=== PATIENT | female | born 1980 | race Caucasian/White ===

== ENCOUNTER 2017-03-05 10:40 | Emergency (ER) | payer MEDICAID, OTHER ==
--- NOTE | 2017-03-05 11:29 | EDM.PDOC ---
ED HPI GENERAL MEDICAL PROBLEM - General Chief Complaint: Upper Extremity Injury/Pain Stated Complaint: Left arm swelling Time Seen by Provider: 03/05/17 11:15 Source of Information: Reports: Patient, RN Notes Reviewed History Limitations: Reports: No Limitations - History of Present Illness INITIAL COMMENTS - FREE TEXT/NARRATIVE: 36 year old female presents to the ED today with 1 week history of progressively worsening left arm bruising, swelling and discomfort. She reports falling 1 week ago and hitting her elbow. She reports "twinges" of pain for a few days after the injury. She otherwise denies pain today. She has significant and worsening bruising and swelling to the left arm. The swelling involves her mid-humerus region to her hand. Denies numbness, tingling, fever, chills, or night sweats. She denies shoulder pain, forearm pain, wrist or hand pain. Left Elbow Pain Score (Numeric/FACES): 1 - Related Data Allergies Allergy/AdvReac Type Severity Reaction Status Date / Time Penicillins Allergy Cannot Verified 03/05/17 10:51 Remember Home Meds: Home Meds oxyCODONE HCl/Acetaminophen [Oxycodone-Acetaminophen 5-325] 1 - 2 each PO Q4H PRN #20 tablet 03/05/17 [Rx] Past Medical History - Past Health History Medical/Surgical History: Denies Medical/Surgical History Social & Family History - Tobacco Use Smoking Status *Q: Never Smoker - Caffeine Use Caffeine Use: Reports: None - Recreational Drug Use Recreational Drug Use: No Review of Systems - Review of Systems Review Of Systems: See Below Constitutional: Reports: No Symptoms. Denies: Chills, Diaphoresis, Fever, Weakness Respiratory: Reports: No Symptoms. Denies: Shortness of Breath Cardiovascular: Reports: No Symptoms. Denies: Chest Pain Musculoskeletal: Reports: Arm Pain, Joint Swelling. Denies: Shoulder Pain, Hand Pain, Foot Pain Skin: Reports: Bruising, Change in Color Neurological: Reports: No Symptoms. Denies: Numbness, Tingling, Weakness ED EXAM, GENERAL - Physical Exam Exam: See Below Exam Limited By: No Limitations General Appearance: Alert, WD/WN, No Apparent Distress Respiratory/Chest: No Respiratory Distress, Lungs Clear, Normal Breath Sounds Cardiovascular: Regular Rate, Rhythm Extremities: Other (Diffuse swelling from left mid-humerus region down to the hand. She has limited ROM of the left elbow due to swelling. She has a large area of bruising to her tricep region, elbow and proximal forearm. Neurovascular status is intact. No numbness or tingling. No crepitus or obvious deformity. No increased warmth. No open skin wounds. ) Neurological: Alert, Oriented, Normal Cognition, No Motor/Sensory Deficits Skin Exam: Warm, Dry, Intact, Ecchymosis (left elbow) Course - Vital Signs Last Recorded V/S: Last Vital Signs Temp 97.2 F 03/05/17 10:46 Pulse 94 03/05/17 10:46 Resp 18 03/05/17 10:46 BP 119/84 03/05/17 10:46 Pulse Ox 100 03/05/17 10:46 - Orders/Labs/Meds Orders: Active Orders 24 hr Category Date Time Status Elbow Min 3V Lt [CR] Stat Exams 03/05/17 11:20 Taken - Re-Assessments/Exams Free Text/Narrative Re-Assessment/Exam: Left elbow x-rays reveal comminuted, displaced, intra-articular fracture of the left distal humerus. I initially spoke to Dr. Pulido, Orthopedic Surgeon lead generation marketing manager. He recommended transferring to higher level of care. I then spoke to our other Tube Trailer Filler Dr. Felton. He was in surgery but did review the x-rays. Dr. Felton will see her in f/u in the clinic tomorrow morning. I spoke to his office and set up an appointment for tomorrow morning. The patient states that she does not want surgery. 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 She is agreeable to see Dr. Felton in follow-up for further discussion of of surgery. Patient was placed in a long-arm, posterior, ulnar gutter splint with 90 degree flexion at the elbow. Neurovascular status intact prior to and after splinting. She was then placed in a sling. Educated on supportive care. Instructed to take Ibuprofen 600mg TID to help with pain and swelling. Percocet provided for more severe pain. Educated not to drive or drink alcohol while taking Percocet. Discharge instructions as documented. Departure - Departure Time of Disposition: 12:18 Disposition: Home, Self-Care 01 Condition: Good Clinical Impression: Fracture of humerus Qualifiers: Encounter type: initial encounter Humerus Location: distal Fracture type: closed Fracture morphology: other fracture Fracture alignment: displaced Laterality: left Qualified Code(s): S42.492A - Other displaced fracture of lower end of left humerus, initial encounter for closed fracture - Discharge Information Prescriptions: oxyCODONE HCl/Acetaminophen [Oxycodone-Acetaminophen 5-325] 1 - 2 each PO Q4H PRN #20 tablet PRN Reason: Pain Referrals: PCP,None [Primary Care Provider] - Forms: ED Department Discharge Additional Instructions: Elbow Fracture Rest, ice and elevate Keep splint clean and dry, wear at all times. May loosen [place] wrap if needed. Wear sling when up and moving, may remove and elevate arm on pillows Ibuprofen 600mg 3 times a day with food. Tylenol 650mg every 6 hours as needed for pain not relieved by Ibuprofen Percocet 1-2 tabs every 4-6 hours as needed for pain not relieved by Tyelnol or Ibuprofen. Do not exceed 3000mg of Tylenol per day See Dr. Felton in the office tomorrow at 8:20am. Dr. Cui office number is [phone] if you need to reschedule. - My Orders Last 24 Hours: My Active Orders 03/05/17 11:20 Elbow Min 3V Lt [CR] Stat - Assessment/Plan Last 24 Hours: My Active Orders 03/05/17 11:20 Elbow Min 3V Lt [CR] Stat
--- NOTE | 2017-03-05 13:45 | CR ---
Left elbow: Four views of the left elbow were obtained. Comminuted fracture is identified within the distal humerus. Fracture extends vertically to involve the intercondylar region with comminution being seen medially. Transverse fracture is also seen involving the epicondylar region. Radius and ulna appear to be intact. Diffuse soft tissue swelling is identified. Impression: 1. Comminuted distal humeral fracture with articular extension into the elbow. 2. Soft tissue swelling. Diagnostic code #3
== END 2017-03-05 12:30 | disposition home or self-care (01) ==
LOC: JD.ED 10:40
DX: S42.492A Other displaced fracture of lower end of left humerus, initial encounter for closed fracture (principal); S50.02XA Contusion of left elbow, initial encounter; Z88.0 Allergy status to penicillin; W19.XXXA Unspecified fall, initial encounter
CPT/HCPCS: 29105; 73080-26-LT; 73080-LT; 99283-25

== ENCOUNTER 2017-03-11 06:29 | Inpatient (IN) | payer MEDICAID ==
[~2017-03-11 06:29] MED LIST: Lactated Ringers 1,000 ML IV SCH; Lidocaine 1%/Sod Bicarbonate in NS 8.4% 1 ML Syringe IV PRN; Sodium Chloride 0.9% 10 ML Syringe FLUSH PRN
[2017-03-11] MEDS ORDERED: Sodium Chloride 0.9% 10 ML Syringe FLUSH PRN (07:00)
[2017-03-11] MEDS ORDERED: Lidocaine 1%/Sod Bicarbonate in NS 8.4% 1 ML Syringe PRN (07:00)
[2017-03-11] MEDS ORDERED: Propofol 200 MG/20 ML SDV ONE (07:37)
[2017-03-11] MEDS ORDERED: Midazolam 1 MG/ML 2 ML SDV ONE (07:37)
[2017-03-11] MEDS: Lactated Ringers 1,000 ML IV SCH ×3 (07:38→21:33)
[2017-03-11] MEDS ORDERED: fentaNYL 250 MCG/5 ML SDV ONE ×2 (07:38→10:31)
[2017-03-11] MEDS ORDERED: Dexamethasone 4 MG/ML SDV ONE (07:39)
[2017-03-11] MEDS ORDERED: Rocuronium 50 MG/5 ML Vial ONE (07:39)
[2017-03-11] MEDS ORDERED: Lidocaine 1% 4 ML ONE (07:39)
[2017-03-11] MEDS ORDERED: Ondansetron 4 MG/2 ML SDV ONE (07:39)
[2017-03-11] MEDS ORDERED: ceFAZolin 1 GM Vial ONE ×2 (07:40→14:11)
[2017-03-11] MEDS ORDERED: Bupivacaine 0.25% 30 ML SDV ONE (07:47)
--- NOTE | 2017-03-11 07:53 | PCM.PREANE ---
Preanesthetic Assessment - Procedure Proposed Procedure: ORID left intra-articular condylar distal humerous fracture - Anesthesia/Transfusion/Family Hx Anesthesia History: No Prior Anesthesia Family History of Anesthesia Reaction: No Transfusion History: No Prior Transfusion(s) Intubation History: Unknown Additional History: ETOH abuse Pt also stated she doesnt like doctors and does not go to one routinely when asked about her medical problems. - Review of Systems General: No Symptoms Pulmonary: No Symptoms Cardiovascular: No Symptoms Gastrointestinal: No Symptoms Neurological: No Symptoms Other: Reports: Easy Bruising - Physical Assessment NPO Status Date: 03/10/17 NPO Status Time: 23:00 O2 Sat by Pulse Oximetry: 95 Respiratory Rate: 16 Blood Pressure: 142/93 Temperature: 37.7 C Height: 1.57 m Weight: 61 kg ASA Class: 2 Mental Status: Alert & Oriented x3 Airway Class: Mallampati = 3 Dentition: Reports: Normal Dentition Thyro-Mental Finger Breadths: 3 Mouth Opening Finger Breadths: 2 ROM/Head Extension: Full Lungs: Clear to Auscultation, Normal Respiratory Effort Cardiovascular: Regular Rate, Regular Rhythm - Lab Values: Laboratory Last Values WBC 5.15 K/mm3 (3.98-10.04) 03/11/17 07:35 RBC 3.82 M/mm3 (3.98-5.22) L 03/11/17 07:35 Hgb 13.3 gm/L (11.2-15.7) 03/11/17 07:35 Hct 39.3 % (34.1-44.9) 03/11/17 07:35 MCV 102.9 fl (79.4-94.8) H 03/11/17 07:35 MCH 34.8 pg (25.6-32.2) H 03/11/17 07:35 MCHC 33.8 g/dl (32.2-35.5) 03/11/17 07:35 RDW Std Deviation 45.8 fL (36.4-46.3) 03/11/17 07:35 Plt Count 233 K/mm3 (182-369) 03/11/17 07:35 MPV 8.6 fl (9.4-12.3) L 03/11/17 07:35 Neut % (Auto) 74.9 % (34.0-71.1) H 03/11/17 07:35 Lymph % (Auto) 10.9 % (19.3-51.7) L 03/11/17 07:35 [place] % (Auto) 13.0 % (4.7-12.5) H 03/11/17 07:35 Eos % (Auto) 0.6 (0.7-5.8) L 03/11/17 07:35 Baso % (Auto) 0.4 % (0.1-1.2) 03/11/17 07:35 Neut # (Auto) 3.86 K/mm3 (1.56-6.13) 03/11/17 07:35 Lymph # (Auto) 0.56 K/mm3 (1.18-3.74) L 03/11/17 07:35 [place] # (Auto) 0.67 K/mm3 (0.24-0.36) H 03/11/17 07:35 Eos # (Auto) 0.03 K/mm3 (0.04-0.36) L 03/11/17 07:35 Baso # (Auto) 0.02 K/mm3 (0.01-0.08) 03/11/17 07:35 Urine HCG, Qual Negative (NEGATIVE) 03/11/17 07:14 Pending blood etoh and chemistry - Allergies Allergies/Adverse Reactions: Allergies Allergy/AdvReac Type Severity Reaction Status Date / Time Penicillins Allergy Cannot Verified 03/10/17 14:07 Remember - Blood Blood Available: No Product(s) Available: None - Anesthesia Plan Pre-Op Medication Ordered: None - Acknowledgements Anesthesia Type Planned: General Anesthesia Pt an Appropriate Candidate for the Planned Anesthesia: Yes Alternatives and Risks of Anesthesia Discussed w Pt/Guardian: Yes Pt/Guardian Understands and Agrees with Anesthesia Plan: Yes PreAnesthesia Questionnaire - Past Health History Medical/Surgical History: Denies Medical/Surgical History HEENT History: Reports: Impaired Vision, Other (See Below) Other HEENT History: wears glasses - SUBSTANCE USE Smoking Status *Q: Never Smoker Tobacco Use Within Last Twelve Months: Snuff/Dip Days Per Week of Alcohol Use: 7 Number of Drinks Per Day: 2 Total Drinks Per Week: 14 Date of Last Drink: 03/09/17 Time of Last Drink: 18:00 Recreational Drug Use History: No - HOME MEDS Home Medications: Home Meds oxyCODONE HCl/Acetaminophen [Oxycodone-Acetaminophen 5-325] 1 - 2 each PO Q4H PRN #20 tablet 03/05/17 [Rx] - CURRENT (IN HOUSE) MEDS Current Meds: Current Medications Lactated Ringer's (Ringers, Lactated) 1,000 mls @ 125 mls/hr IV ASDIRECTED COURT Stop: 03/11/17 23:00 Lidocaine/Sodium Bicarbonate (Buffered Lidocaine 1% In Ns 8.4%) 0.25 ml .XX ONETIME PRN PRN Reason: Prior to IV Start Stop: 03/11/17 18:00 Sodium Chloride (Saline Flush) 10 ml FLUSH ASDIRECTED PRN PRN Reason: Keep Vein Open Stop: 03/11/17 18:00 Discontinued Medications Cefazolin Sodium (Ancef) Confirm Administered Dose 2 gm .ROUTE .STK-MED ONE Stop: 03/11/17 07:41 Dexamethasone (Dexamethasone) Confirm Administered Dose 4 mg .ROUTE .STK-MED ONE Stop: 03/11/17 07:40 Fentanyl (Sublimaze) Confirm Administered Dose 250 mcg .ROUTE .STK-MED ONE Stop: 03/11/17 07:39 Lactated Ringer's (Ringers, Lactated) 1,000 mls @ 125 mls/hr IV ASDIRECTED [facility] Lidocaine HCl (Xylocaine-Mpf 1%) Confirm Administered Dose 4 mls @ as directed .ROUTE .STK-MED ONE Stop: 03/11/17 07:40 Lidocaine/Sodium Bicarbonate (Buffered Lidocaine 1% In Ns 8.4%) 0.25 ml IV ONETIME PRN PRN Reason: Prior to IV Start Midazolam HCl (Versed 1 Mg/Ml) Confirm Administered Dose 2 mg .ROUTE .STK-MED ONE Stop: 03/11/17 07:38 Ondansetron HCl (Zofran) Confirm Administered Dose 4 mg .ROUTE .STK-MED ONE Stop: 03/11/17 07:40 Propofol (Diprivan 20 Ml) Confirm Administered Dose 200 mg .ROUTE .STK-MED ONE Stop: 03/11/17 07:38 Rocuronium [place] (Zemuron) Confirm Administered Dose 50 mg .ROUTE .STK-MED ONE Stop: 03/11/17 07:40 Sodium Chloride (Saline Flush) 10 ml FLUSH ASDIRECTED PRN PRN Reason: Keep Vein Open
[2017-03-11] MEDS ORDERED: HYDROmorphone 1 MG/ML Syringe ONE ×3 (09:56→13:29)
[2017-03-11] MEDS ORDERED: Lactated Ringers 1,000 ML ONE ×2 (13:04)
[2017-03-11] MEDS ORDERED: fentaNYL 100 MCG/2 ML SDV ONE (14:15)
[2017-03-11] MEDS ORDERED: Magnesium Hydroxide 400 MG/5 ML Susp 30 ML Cup PO PRN (16:21)
[2017-03-11] MEDS ORDERED: diphenhydrAMINE 50 MG/ML SDV IVPUSH PRN ×2 (16:21→16:33)
[2017-03-11] MEDS ORDERED: Naloxone 0.4 MG/ML SDV IVPUSH PRN (16:21)
[2017-03-11] MEDS ORDERED: Bisacodyl 5 MG Tab PO PRN (16:21)
[2017-03-11] MEDS ORDERED: Ondansetron 4 MG/2 ML SDV IVPUSH PRN ×2 (16:21→16:33)
[2017-03-11] MEDS ORDERED: Docusate Sodium 100 MG Cap PO PRN (16:21)
[2017-03-11] MEDS ORDERED: Sennosides 8.6 MG Tab PO PRN (16:21)
--- NOTE | 2017-03-11 16:30 | PCM.POSTAN ---
POST ANESTHESIA ASSESSMENT - MENTAL STATUS Mental Status: Alert, Oriented - VITAL SIGNS Pulse Rate: 133 SaO2: 98 Resp Rate: 9 Blood Pressure: 147/100 Temperature: 100.2 C - RESPIRATORY Respiratory Status: Respiratory Rate WNL, Airway Patent, O2 Saturation Stable, Supplemental Oxygen - CARDIOVASCULAR CV Status: Pulse Rate WNL, Blood Pressure Stable - GASTROINTESTINAL GI Status: No Symptoms - PAIN Pain Score: 0 - POST OP HYDRATION Hydration Status: Adequate & Stable
[2017-03-11] MEDS ORDERED: fentaNYL 100 MCG/2 ML SDV IVPUSH PRN (16:33)
[2017-03-11] MEDS ORDERED: Meperidine PF 50 MG/ML Syringe IVPUSH PRN (16:33)
[2017-03-11] MEDS: HYDROmorphone 0.5 MG/0.5 ML Syringe IVPUSH PRN ×2 (17:10→20:18)
--- NOTE | 2017-03-11 17:32 | CR ---
Left elbow: Multiple fluoroscopic spot views were obtained of the left elbow. Comparison: Prior left elbow study of 03/05/17. Reduction and fixation of previous elbow fractures are noted within the distal humerus. Plate and screws are identified along the medial and lateral distal humerus as well as plate and screws within the olecranon process. Fluoroscopy time at time of dictation is not available. Impression: 1. Reduction and fixation of previous elbow fractures. Diagnostic code #2
[2017-03-11] MEDS: Acetaminophen/oxyCODONE 325-5 MG Tab PO PRN (18:40)
--- NOTE | 2017-03-11 18:51 | PCM.CONSN ---
- General Info Date of Service: 03/11/17 Subjective Update: 36 year old female who was initially seen in the ED at [facility], at that time, she was scheduled for an OP evaluation. After sen by Dr Felton and staff, the patient was scheduled for ORIF left intra-articular bicondylar distal humerus fracture. She was seen 03/05/17 for the displaced left intra-articular humerus fracture with follow up as mentioned. The hospitalist service has been requested to provide medical management pos op. Functional Status: Reports: Pain Controlled, Urinating - Review of Systems General: Reports: No Symptoms HEENT: Reports: No Symptoms Pulmonary: Reports: No Symptoms Cardiovascular: Reports: No Symptoms Gastrointestinal: Reports: No Symptoms Genitourinary: Reports: No Symptoms Musculoskeletal: Reports: No Symptoms Skin: Reports: No Symptoms Neurological: Reports: No Symptoms Psychiatric: Reports: No Symptoms - Patient Data Vitals - Most Recent: Last Vital Signs Temp 100.2 C H 03/11/17 16:30 Pulse 108 H 03/11/17 17:20 Resp 13 03/11/17 17:20 BP 136/93 H 03/11/17 17:20 Pulse Ox 98 03/11/17 17:20 Weight - Most Recent: 60.781 kg I&O - Last 24 Hours: Intake & Output 03/11/17 03/11/17 03/11/17 06:59 14:59 22:59 Intake Total 280 Output Total 100 Balance 180 Lab Results Last 24 Hours: Laboratory Results - last 24 hr 03/11/17 03/11/17 03/11/17 Range/Units 07:14 07:35 07:35 WBC (3.98-10.04) K/mm3 RBC (3.98-5.22) M/mm3 Hgb (11.2-15.7) gm/L Hct (34.1-44.9) % MCV (79.4-94.8) fl MCH (25.6-32.2) pg MCHC (32.2-35.5) g/dl RDW Std Deviation (36.4-46.3) fL Plt Count (182-369) K/mm3 MPV (9.4-12.3) fl Neut % (Auto) (34.0-71.1) % Lymph % (Auto) (19.3-51.7) % [place] % (Auto) (4.7-12.5) % Eos % (Auto) (0.7-5.8) Baso % (Auto) (0.1-1.2) % Neut # (Auto) (1.56-6.13) K/mm3 Lymph # (Auto) (1.18-3.74) K/mm3 [place] # (Auto) (0.24-0.36) K/mm3 Eos # (Auto) (0.04-0.36) K/mm3 Baso # (Auto) (0.01-0.08) K/mm3 PT 10.4 (8.0-13.0) SECONDS INR 0.96 APTT (22-36) SECONDS Sodium 138 (136-145) mEq/L Potassium 3.9 (3.5-5.1) mEq/L Chloride 103 (98-107) mEq/L Carbon Dioxide 21 (21-32) mEq/L Anion Gap 17.9 H (5-15) BUN 7 (7-18) mg/dL Creatinine 0.6 (0.55-1.02) mg/dL Est Cr Clr Drug Dosing 101.53 mL/min Estimated GFR (MDRD) > 60 (>60) mL/min BUN/Creatinine Ratio 11.7 L (14-18) Glucose 95 (74-106) mg/dL Calcium 9.6 (8.5-10.1) mg/dL Total Bilirubin 1.1 H (0.2-1.0) mg/dL AST 147 H (15-37) U/L ALT 114 H (14-59) U/L Alkaline Phosphatase 190 H (46-116) U/L Total Protein 7.7 (6.4-8.2) g/dl Albumin 3.8 (3.4-5.0) g/dl Globulin 3.9 gm/dL Albumin/Globulin Ratio 1.0 (1-2) Urine HCG, Qual Negative (NEGATIVE) Ethyl Alcohol 0.00 (0.00) gm% 03/11/17 03/11/17 Range/Units 07:35 07:35 WBC 5.15 (3.98-10.04) K/mm3 RBC 3.82 L (3.98-5.22) M/mm3 Hgb 13.3 (11.2-15.7) gm/L Hct 39.3 (34.1-44.9) % MCV 102.9 H (79.4-94.8) fl MCH 34.8 H (25.6-32.2) pg MCHC 33.8 (32.2-35.5) g/dl RDW Std Deviation 45.8 (36.4-46.3) fL Plt Count 233 (182-369) K/mm3 MPV 8.6 L (9.4-12.3) fl Neut % (Auto) 74.9 H (34.0-71.1) % Lymph % (Auto) 10.9 L (19.3-51.7) % [place] % (Auto) 13.0 H (4.7-12.5) % Eos % (Auto) 0.6 L (0.7-5.8) Baso % (Auto) 0.4 (0.1-1.2) % Neut # (Auto) 3.86 (1.56-6.13) K/mm3 Lymph # (Auto) 0.56 L (1.18-3.74) K/mm3 [place] # (Auto) 0.67 H (0.24-0.36) K/mm3 Eos # (Auto) 0.03 L (0.04-0.36) K/mm3 Baso # (Auto) 0.02 (0.01-0.08) K/mm3 PT (8.0-13.0) SECONDS INR APTT 25 (22-36) SECONDS Sodium (136-145) mEq/L Potassium (3.5-5.1) mEq/L Chloride (98-107) mEq/L Carbon Dioxide (21-32) mEq/L Anion Gap (5-15) BUN (7-18) mg/dL Creatinine (0.55-1.02) mg/dL Est Cr Clr Drug Dosing mL/min Estimated GFR (MDRD) (>60) mL/min BUN/Creatinine Ratio (14-18) Glucose (74-106) mg/dL Calcium (8.5-10.1) mg/dL Total Bilirubin (0.2-1.0) mg/dL AST (15-37) U/L ALT (14-59) U/L Alkaline Phosphatase (46-116) U/L Total Protein (6.4-8.2) g/dl Albumin (3.4-5.0) g/dl Globulin gm/dL Albumin/Globulin Ratio (1-2) Urine HCG, Qual (NEGATIVE) Ethyl Alcohol (0.00) gm% Med Orders - Current: Current Medications Aspirin (Ecotrin) [address] Bisacodyl (Dulcolax) 5 mg PO DAILY PRN PRN Reason: Constipation Diphenhydramine HCl (Benadryl) 25 mg IVPUSH Q4H PRN PRN Reason: Nausea Diphenhydramine HCl (Benadryl) 25 mg IVPUSH Q6H PRN PRN Reason: Pruritis Docusate Sodium (Colace) 100 mg PO BID PRN PRN Reason: Constipation Famotidine (Pepcid) [address] Fentanyl (Sublimaze) 50 mcg IVPUSH Q5M PRN PRN Reason: Pain Hydromorphone HCl (Dilaudid) 0.5 mg IVPUSH Q15M PRN PRN Reason: Pain (severe 7-10) Last Admin: 03/11/17 17:10 Dose: 0.5 mg Lactated Ringer's (Ringers, Lactated) 1,000 mls @ 125 mls/hr IV ASDIRECTED [facility] Stop: 03/11/17 23:00 Last Admin: 03/11/17 17:25 Dose: 125 mls/hr Cefazolin Sodium/Dextrose 2 gm (/ Premix) 50 mls @ 100 mls/hr IV Q8H [facility] Stop: 03/12/17 14:29 Magnesium Hydroxide (Milk Of Magnesia) 30 ml PO BID PRN PRN Reason: Constipation Meperidine HCl (Demerol) 12.5 mg IVPUSH ONETIME PRN PRN Reason: Shivering Morphine Sulfate (Morphine) 2 mg IVPUSH Q2H PRN PRN Reason: Breakthrough Pain Naloxone HCl (Narcan) 0.1 mg IVPUSH Q5M PRN PRN Reason: Oversedation Ondansetron HCl (Zofran) 4 mg IVPUSH Q6H PRN PRN Reason: Nausea/Vomiting Ondansetron HCl (Zofran) 4 mg IVPUSH ONETIME PRN PRN Reason: Nausea/Vomiting Oxycodone/Acetaminophen (Percocet 325-5 Mg) 1 - 2 tab PO Q4H PRN PRN Reason: Pain Last Admin: 03/11/17 18:40 Dose: 2 tab Senna (Senna) 8.6 mg PO BID PRN PRN Reason: Constipation Discontinued Medications Bupivacaine HCl (Marcaine 0.25%) Confirm Administered Dose 30 ml .ROUTE .STK- MED ONE Stop: 03/11/17 07:48 Last Admin: 03/11/17 09:05 Dose: 30 ml Cefazolin Sodium (Ancef) Confirm Administered Dose 2 gm .ROUTE .STK-MED ONE Stop: 03/11/17 07:41 Cefazolin Sodium (Ancef) Confirm Administered Dose 2 gm .ROUTE .STK-MED ONE Stop: 03/11/17 14:12 Dexamethasone (Dexamethasone) Confirm Administered Dose 4 mg .ROUTE .STK-MED ONE Stop: 03/11/17 07:40 Fentanyl (Sublimaze) Confirm Administered Dose 250 mcg .ROUTE .STK-MED ONE Stop: 03/11/17 07:39 Fentanyl (Sublimaze) Confirm Administered Dose 250 mcg .ROUTE .STK-MED ONE Stop: 03/11/17 10:32 Fentanyl (Sublimaze) Confirm Administered Dose 100 mcg .ROUTE .STK-MED ONE Stop: 03/11/17 14:16 Hydromorphone HCl (Dilaudid) Confirm Administered Dose 1 mg .ROUTE .STK-MED ONE Stop: 03/11/17 09:57 Hydromorphone HCl (Dilaudid) Confirm Administered Dose 1 mg .ROUTE .STK-MED ONE Stop: 03/11/17 10:28 Hydromorphone HCl (Dilaudid) Confirm Administered Dose 1 mg .ROUTE .STK-MED ONE Stop: 03/11/17 13:30 Lactated Ringer's (Ringers, Lactated) 1,000 mls @ 125 mls/hr IV ASDIRECTED COURT Lidocaine HCl (Xylocaine-Mpf 1%) Confirm Administered Dose 4 mls @ as directed .ROUTE .STK-MED ONE Stop: 03/11/17 07:40 Lactated Ringer's (Ringers, Lactated) Confirm Administered Dose 1,000 mls @ as directed .ROUTE .STK-MED ONE Stop: 03/11/17 13:05 Lactated Ringer's (Ringers, Lactated) Confirm Administered Dose 1,000 mls @ as directed .ROUTE .STK-MED ONE Stop: 03/11/17 13:05 Lidocaine/Sodium Bicarbonate (Buffered Lidocaine 1% In Ns 8.4%) 0.25 ml IV ONETIME PRN PRN Reason: Prior to IV Start Lidocaine/Sodium Bicarbonate (Buffered Lidocaine 1% In Ns 8.4%) 0.25 ml .XX ONETIME PRN PRN Reason: Prior to IV Start Stop: 03/11/17 18:00 Last Admin: 03/11/17 07:38 Dose: 0.25 ml Midazolam HCl (Versed 1 Mg/Ml) Confirm Administered Dose 2 mg .ROUTE .STK-MED ONE Stop: 03/11/17 07:38 Ondansetron HCl (Zofran) Confirm Administered Dose 4 mg .ROUTE .STK-MED ONE Stop: 03/11/17 07:40 Propofol (Diprivan 20 Ml) Confirm Administered Dose 200 mg .ROUTE .STK-MED ONE Stop: 03/11/17 07:38 Rocuronium [place] (Zemuron) Confirm Administered Dose 50 mg .ROUTE .STK-MED ONE Stop: 03/11/17 07:40 Sodium Chloride (Saline Flush) 10 ml FLUSH ASDIRECTED PRN PRN Reason: Keep Vein Open Sodium Chloride (Saline Flush) 10 ml FLUSH ASDIRECTED PRN PRN Reason: Keep Vein Open Stop: 03/11/17 18:00 - Exam Quality Assessment: Supplemental Oxygen, DVT Prophylaxis General: Alert, Oriented, No Acute Distress HEENT: Pupils Equal, Pupils Reactive, EOMI Neck: Trachea Midline Lungs: Normal Respiratory Effort Cardiovascular: Regular Rate, Regular Rhythm GI/Abdominal Exam: Normal Bowel Sounds, Soft, Non-Tender, No Organomegaly, No Distention (Female) Exam: Deferred Back Exam: Normal Inspection Extremities: Normal Inspection Skin: Warm Wound/Incisions: Dressing Dry and Intact Neurological: No New Focal Deficit, Normal Speech Psy/Mental Status: Alert, Anxious Consult PN Assessment/Plan POD#: 0 Procedures: Procedures APPLY LONG ARM SPLINT (03/05/17) COMPLETE CBC AUTOMATED (03/06/17) COMPREHEN METABOLIC PANEL (03/06/17) EMERGENCY DEPT VISIT (03/05/17) MR-STAPH DNA AMP PROBE (03/06/17) ROUTINE VENIPUNCTURE (03/06/17) X-RAY EXAM OF ELBOW (03/05/17) (1) Alcohol abuse SNOMED Code(s): 23560557 Code(s): F10.10 - ALCOHOL ABUSE, UNCOMPLICATED Current Visit: Yes (2) Tobacco abuse SNOMED Code(s): 345060729 Code(s): Z72.0 - TOBACCO USE Current Visit: Yes (3) Fracture of humerus SNOMED Code(s): 01039418 Code(s): S42.309A - UNSP FRACTURE OF SHAFT OF HUMERUS, UNSP ARM, INIT Current Visit: No Qualifiers: Encounter type: initial encounter Humerus Location: distal Fracture type : closed Fracture morphology: other fracture Fracture alignment: displaced Laterality: left Qualified Code(s): S42.492A - Other displaced fracture of lower end of left humerus, initial encounter for closed fracture Problem List Initiated/Reviewed/Updated: Yes Plan: Impression: Post OP ORIF L Distal Humerus Fracture ETOH Dependence ETOH Withdrawal Tobacco Dependence Plan: Pain meds/DVT prophylaxis per Ortho service CIWA protocol Librium ATC Thiamine/Folic Acid Consult SA/Psych DVTGI prophylaxis SW/PT/OT consults
[2017-03-11] MEDS ORDERED: LORazepam 2 MG/ML MDV IVPUSH PRN ×2 (18:56→19:15)
[2017-03-11] MEDS ORDERED: Haloperidol Lactate 5 MG/ML SDV IVPUSH PRN (18:58)
[2017-03-11] MEDS ORDERED: chlordiazePOXIDE 25 MG Cap PO SCH (19:30)
[2017-03-11] MEDS: chlordiazePOXIDE 10 MG Cap PO SCH ×2 (20:00→22:03)
[2017-03-11] MEDS: Famotidine 20 MG Tab PO SCH (20:00)
[2017-03-11] MEDS: Nicotine 21 MG/24 Hr Patch TRDERM SCH (20:00)
[2017-03-11] MEDS: ceFAZolin 2 GM in Premix Bag 1 BAG IV SCH (21:48)
[2017-03-12] MEDS: Morphine 2 MG/ML Syringe IVPUSH PRN ×2 (00:12→06:43)
[2017-03-12] MEDS: Acetaminophen/oxyCODONE 325-5 MG Tab PO PRN ×6 (00:25→20:05)
[2017-03-12] MEDS: ceFAZolin 2 GM in Premix Bag 1 BAG IV SCH ×2 (05:26→15:00)
--- NOTE | 2017-03-12 06:47 | PCM48HPAN ---
Post Anesthesia Note - EVALUATION WITHIN 48HRS OF ANESTHETIC Vital Signs in Normal Range: Yes Patient Participated in Evaluation: Yes Respiratory Function Stable: Yes Airway Patent: Yes Cardiovascular Function Stable: Yes Hydration Status Stable: Yes Pain Control Satisfactory: Yes Nausea and Vomiting Control Satisfactory: Yes Mental Status Recovered: Yes
--- NOTE | 2017-03-12 07:18 | PCM.PN ---
- General Info Date of Service: 03/12/17 Admission Dx/Problem (Free Text): POD #1, ORIF lt elbow with Dr. Joes Francisco Leija is seen this morning. She is awake, alert. States pain is 5/10 currently and nurse is bringing her pain meds. She did not sleep much, states not due to pain "I just couldnt sleep". Denies CP, SOB, cough, wheeze, abd or back pain. No nausea/vomiting. Can feel and wiggle her fingers to left hand. Functional Status: Reports: Pain Controlled, Tolerating Diet, Ambulating, Urinating, Incentive Spirometry - Review of Systems General: Denies: Fever HEENT: Reports: No Symptoms Pulmonary: Reports: No Symptoms Cardiovascular: Reports: No Symptoms Gastrointestinal: Reports: No Symptoms Musculoskeletal: Reports: Arm Pain (lt elbow) Neurological: Reports: No Symptoms Psychiatric: Reports: No Symptoms, Other (On CIWAA protocol). Denies: Anxiety, Agitation, Cravings, Hallucinations - Patient Data Vitals - Most Recent: Last Vital Signs Temp 98.4 F 03/12/17 02:32 Pulse 112 H 03/12/17 02:32 Resp 18 03/12/17 02:32 BP 127/90 03/12/17 02:32 Pulse Ox 98 03/12/17 02:32 Weight - Most Recent: 143 lb 9.6 oz I&O - Last 24 Hours: Intake & Output 03/11/17 03/12/17 03/12/17 22:59 06:59 14:59 Intake Total 1640 4072 Output Total 100 1250 Balance 1540 2822 Lab Results Last 24 Hours: Laboratory Results - last 24 hr 03/11/17 03/11/17 03/11/17 Range/Units 07:14 07:35 07:35 WBC (3.98-10.04) K/mm3 RBC (3.98-5.22) M/mm3 Hgb (11.2-15.7) gm/L Hct (34.1-44.9) % MCV (79.4-94.8) fl MCH (25.6-32.2) pg MCHC (32.2-35.5) g/dl RDW Std Deviation (36.4-46.3) fL Plt Count (182-369) K/mm3 MPV (9.4-12.3) fl Neut % (Auto) (34.0-71.1) % Lymph % (Auto) (19.3-51.7) % [place] % (Auto) (4.7-12.5) % Eos % (Auto) (0.7-5.8) Baso % (Auto) (0.1-1.2) % Neut # (Auto) (1.56-6.13) K/mm3 Lymph # (Auto) (1.18-3.74) K/mm3 [place] # (Auto) (0.24-0.36) K/mm3 Eos # (Auto) (0.04-0.36) K/mm3 Baso # (Auto) (0.01-0.08) K/mm3 PT 10.4 (8.0-13.0) SECONDS INR 0.96 APTT (22-36) SECONDS Sodium 138 (136-145) mEq/L Potassium 3.9 (3.5-5.1) mEq/L Chloride 103 (98-107) mEq/L Carbon Dioxide 21 (21-32) mEq/L Anion Gap 17.9 H (5-15) BUN 7 (7-18) mg/dL Creatinine 0.6 (0.55-1.02) mg/dL Est Cr Clr Drug Dosing 101.53 mL/min Estimated GFR (MDRD) > 60 (>60) mL/min BUN/Creatinine Ratio 11.7 L (14-18) Glucose 95 (74-106) mg/dL Calcium 9.6 (8.5-10.1) mg/dL Total Bilirubin 1.1 H (0.2-1.0) mg/dL AST 147 H (15-37) U/L ALT 114 H (14-59) U/L Alkaline Phosphatase 190 H (46-116) U/L Total Protein 7.7 (6.4-8.2) g/dl Albumin 3.8 (3.4-5.0) g/dl Globulin 3.9 gm/dL Albumin/Globulin Ratio 1.0 (1-2) Urine HCG, Qual Negative (NEGATIVE) Ethyl Alcohol 0.00 (0.00) gm% 03/11/17 03/11/17 03/12/17 Range/Units 07:35 07:35 06:00 WBC 5.15 6.74 (3.98-10.04) K/mm3 RBC 3.82 L 2.84 L (3.98-5.22) M/mm3 Hgb 13.3 9.8 L (11.2-15.7) gm/L Hct 39.3 29.7 L (34.1-44.9) % MCV 102.9 H 104.6 H (79.4-94.8) fl MCH 34.8 H 34.5 H (25.6-32.2) pg MCHC 33.8 33.0 (32.2-35.5) g/dl RDW Std Deviation 45.8 44.4 (36.4-46.3) fL Plt Count 233 173 L (182-369) K/mm3 MPV 8.6 L 9.7 (9.4-12.3) fl Neut % (Auto) 74.9 H (34.0-71.1) % Lymph % (Auto) 10.9 L (19.3-51.7) % [place] % (Auto) 13.0 H (4.7-12.5) % Eos % (Auto) 0.6 L (0.7-5.8) Baso % (Auto) 0.4 (0.1-1.2) % Neut # (Auto) 3.86 (1.56-6.13) K/mm3 Lymph # (Auto) 0.56 L (1.18-3.74) K/mm3 [place] # (Auto) 0.67 H (0.24-0.36) K/mm3 Eos # (Auto) 0.03 L (0.04-0.36) K/mm3 Baso # (Auto) 0.02 (0.01-0.08) K/mm3 PT (8.0-13.0) SECONDS INR APTT 25 (22-36) SECONDS Sodium (136-145) mEq/L Potassium (3.5-5.1) mEq/L Chloride (98-107) mEq/L Carbon Dioxide (21-32) mEq/L Anion Gap (5-15) BUN (7-18) mg/dL Creatinine (0.55-1.02) mg/dL Est Cr Clr Drug Dosing mL/min Estimated GFR (MDRD) (>60) mL/min BUN/Creatinine Ratio (14-18) Glucose (74-106) mg/dL Calcium (8.5-10.1) mg/dL Total Bilirubin (0.2-1.0) mg/dL AST (15-37) U/L ALT (14-59) U/L Alkaline Phosphatase (46-116) U/L Total Protein (6.4-8.2) g/dl Albumin (3.4-5.0) g/dl Globulin gm/dL Albumin/Globulin Ratio (1-2) Urine HCG, Qual (NEGATIVE) Ethyl Alcohol (0.00) gm% Med Orders - Current: Current Medications Aspirin (Ecotrin) 325 mg PO DAILY [facility] Bisacodyl (Dulcolax) 5 mg PO DAILY PRN PRN Reason: Constipation Chlordiazepoxide HCl (Librium) 10 mg PO TID [facility] Last Admin: 03/11/17 22:03 Dose: 10 mg Diphenhydramine HCl (Benadryl) 25 mg IVPUSH Q4H PRN PRN Reason: Nausea Diphenhydramine HCl (Benadryl) 25 mg IVPUSH Q6H PRN PRN Reason: Pruritis Docusate Sodium (Colace) 100 mg PO BID PRN PRN Reason: Constipation Famotidine (Pepcid) 20 mg PO Q12H [facility] Last Admin: 03/11/17 20:00 Dose: 20 mg Fentanyl (Sublimaze) 50 mcg IVPUSH Q5M PRN PRN Reason: Pain Haloperidol Lactate (Haldol) 1 mg IVPUSH Q8H PRN PRN Reason: restlessness Cefazolin Sodium/Dextrose 2 gm (/ Premix) 50 mls @ 100 mls/hr IV Q8H [facility] Stop: 03/12/17 14:29 Last Admin: 03/12/17 05:26 Dose: 100 mls/hr Lorazepam (Ativan) 1 mg IVPUSH Q6H PRN PRN Reason: Anxiety Magnesium Hydroxide (Milk Of Magnesia) 30 ml PO BID PRN PRN Reason: Constipation Meperidine HCl (Demerol) 12.5 mg IVPUSH ONETIME PRN PRN Reason: Shivering Morphine Sulfate (Morphine) 2 mg IVPUSH Q2H PRN PRN Reason: Breakthrough Pain Last Admin: 03/12/17 06:43 Dose: 2 mg Naloxone HCl (Narcan) 0.1 mg IVPUSH Q5M PRN PRN Reason: Oversedation Nicotine (Habitrol) 21 mg TRDERM DAILY [facility] Last Admin: 03/11/17 20:00 Dose: 21 mg Ondansetron HCl (Zofran) 4 mg IVPUSH Q6H PRN PRN Reason: Nausea/Vomiting Ondansetron HCl (Zofran) 4 mg IVPUSH ONETIME PRN PRN Reason: Nausea/Vomiting Oxycodone/Acetaminophen (Percocet 325-5 Mg) 1 - 2 tab PO Q4H PRN PRN Reason: Pain Last Admin: 03/12/17 04:06 Dose: 2 tab Senna (Senna) 8.6 mg PO BID PRN PRN Reason: Constipation Discontinued Medications Bupivacaine HCl (Marcaine 0.25%) Confirm Administered Dose 30 ml .ROUTE .STK- MED ONE Stop: 03/11/17 07:48 Last Admin: 03/11/17 09:05 Dose: 30 ml Cefazolin Sodium (Ancef) Confirm Administered Dose 2 gm .ROUTE .STK-MED ONE Stop: 03/11/17 07:41 Cefazolin Sodium (Ancef) Confirm Administered Dose 2 gm .ROUTE .STK-MED ONE Stop: 03/11/17 14:12 Chlordiazepoxide HCl (Librium) 25 mg PO TID [facility] Dexamethasone (Dexamethasone) Confirm Administered Dose 4 mg .ROUTE .STK-MED ONE Stop: 03/11/17 07:40 Fentanyl (Sublimaze) Confirm Administered Dose 250 mcg .ROUTE .STK-MED ONE Stop: 03/11/17 07:39 Fentanyl (Sublimaze) Confirm Administered Dose 250 mcg .ROUTE .STK-MED ONE Stop: 03/11/17 10:32 Fentanyl (Sublimaze) Confirm Administered Dose 100 mcg .ROUTE .STK-MED ONE Stop: 03/11/17 14:16 Hydromorphone HCl (Dilaudid) Confirm Administered Dose 1 mg .ROUTE .STK-MED ONE Stop: 03/11/17 09:57 Hydromorphone HCl (Dilaudid) Confirm Administered Dose 1 mg .ROUTE .STK-MED ONE Stop: 03/11/17 10:28 Hydromorphone HCl (Dilaudid) Confirm Administered Dose 1 mg .ROUTE .STK-MED ONE Stop: 03/11/17 13:30 Hydromorphone HCl (Dilaudid) 0.5 mg IVPUSH Q15M PRN PRN Reason: Pain (severe 7-10) Last Admin: 03/11/17 20:18 Dose: 0.5 mg Lactated Ringer's (Ringers, Lactated) 1,000 mls @ 125 mls/hr IV ASDIRECTED COURT Lactated Ringer's (Ringers, Lactated) 1,000 mls @ 125 mls/hr IV ASDIRECTED COURT Stop: 03/11/17 23:00 Last Admin: 03/11/17 21:33 Dose: 125 mls/hr Lidocaine HCl (Xylocaine-Mpf 1%) Confirm Administered Dose 4 mls @ as directed .ROUTE .STK-MED ONE Stop: 03/11/17 07:40 Lactated Ringer's (Ringers, Lactated) Confirm Administered Dose 1,000 mls @ as directed .ROUTE .STK-MED ONE Stop: 03/11/17 13:05 Lactated Ringer's (Ringers, Lactated) Confirm Administered Dose 1,000 mls @ as directed .ROUTE .STK-MED ONE Stop: 03/11/17 13:05 Lidocaine/Sodium Bicarbonate (Buffered Lidocaine 1% In Ns 8.4%) 0.25 ml IV ONETIME PRN PRN Reason: Prior to IV Start Lidocaine/Sodium Bicarbonate (Buffered Lidocaine 1% In Ns 8.4%) 0.25 ml .XX ONETIME PRN PRN Reason: Prior to IV Start Stop: 03/11/17 18:00 Last Admin: 03/11/17 07:38 Dose: 0.25 ml Lorazepam (Ativan) 2 mg IVPUSH Q6H PRN PRN Reason: Anxiety Midazolam HCl (Versed 1 Mg/Ml) Confirm Administered Dose 2 mg .ROUTE .STK-MED ONE Stop: 03/11/17 07:38 Ondansetron HCl (Zofran) Confirm Administered Dose 4 mg .ROUTE .STK-MED ONE Stop: 03/11/17 07:40 Propofol (Diprivan 20 Ml) Confirm Administered Dose 200 mg .ROUTE .STK-MED ONE Stop: 03/11/17 07:38 Rocuronium [place] (Zemuron) Confirm Administered Dose 50 mg .ROUTE .STK-MED ONE Stop: 03/11/17 07:40 Sodium Chloride (Saline Flush) 10 ml FLUSH ASDIRECTED PRN PRN Reason: Keep Vein Open Sodium Chloride (Saline Flush) 10 ml FLUSH ASDIRECTED PRN PRN Reason: Keep Vein Open Stop: 03/11/17 18:00 - Exam Quality Assessment: DVT Prophylaxis General: Alert, Oriented, Cooperative, No Acute Distress HEENT: Pupils Equal, EOMI, Mucous Membr. Moist/[place] Neck: Supple Lungs: Clear to Auscultation, Normal Respiratory Effort, Decreased Breath Sounds (bases) Cardiovascular: Regular Rate, Regular Rhythm GI/Abdominal Exam: Normal Bowel Sounds, Soft, Non-Tender (Female) Exam: Deferred Extremities: Normal Capillary Refill, Other (CMS + and = to UE bilat; unable to palp radial pulse on lt due to [place] wrap and dressing in place) Wound/Incisions: Dressing Dry and Intact Neurological: No New Focal Deficit Psy/Mental Status: Alert, Normal Affect, Normal Mood - Problem List & Annotations (1) Fracture of humerus SNOMED Code(s): 80182900 Code(s): S42.309A - UNSP FRACTURE OF SHAFT OF HUMERUS, UNSP ARM, INIT Status: Acute Priority: High Current Visit: Yes Qualifiers: Encounter type: initial encounter Humerus Location: distal Fracture type : closed Fracture morphology: other fracture Fracture alignment: displaced Laterality: left Qualified Code(s): S42.492A - Other displaced fracture of lower end of left humerus, initial encounter for closed fracture (2) Alcohol abuse SNOMED Code(s): 62722508 Code(s): F10.10 - ALCOHOL ABUSE, UNCOMPLICATED Status: Chronic Priority: Medium Current Visit: Yes (3) Tobacco abuse SNOMED Code(s): 419437574 Code(s): Z72.0 - TOBACCO USE Status: Chronic Priority: Medium Current Visit: Yes - Problem List Review Problem List Initiated/Reviewed/Updated: Yes - Plan Plan:: I/P: S/P ORIF lt distal humerus fracture, POD # 1, Dr. Felton - Pain management and DVT prophylax - PT/OT - RT/IS - Hgb 9.8--preop 13.3 Hypokalemia: 2.9 -NS with 20 KCL at 100cc/hr -KCL 40meq BID today -Check mag- suspect will be low -Follow K+ with am labs -Place on telemetry Hyponatremia- mild at 131 -NS with 20KCL as above -Follow with am labs Chronic conditions: Alcohol use/abuse-- macrocytosis, elevated LFT's -Follow LFT's- improved today -Folic acid and thiamin PO -CIWAA protocol with ativan; CIWAA score of 9 this morning -Librium -Psych and LAC consults placed yesterday Nicotine addiction- nicotine patch Other: GI Prophylax- Pepcid BID CM/SW for DC planning--Ortho team updated on withdrawl status, consults and electrolyte abnormalities today. Recommend no discharge today as not medically stable at this time. Patient is Full Code status.
[2017-03-12] MEDS ORDERED: chlordiazePOXIDE 25 MG Cap PO ONE (07:31)
[2017-03-12] MEDS: NS + KCl 20mEq/L 1,000 ML IV SCH ×2 (08:08→18:57)
[2017-03-12] MEDS: Aspirin 325 MG Tab.EC PO SCH (08:08)
[2017-03-12] MEDS: Famotidine 20 MG Tab PO SCH ×2 (08:09→20:05)
[2017-03-12] MEDS: Potassium Chloride 20 MEQ Tab.ER PO SCH ×2 (08:09→12:57)
[2017-03-12] MEDS: Nicotine 21 MG/24 Hr Patch TRDERM SCH (08:17)
[2017-03-12] MEDS ORDERED: Magnesium Sulfate/Water 2 GM in Premix Bag 1 BAG IV ONE (10:00)
--- NOTE | 2017-03-12 11:54 | PCM.SURGPN ---
- General Info Date of Service: 03/12/17 POD#: 1 Functional Status: Reports: Tolerating Diet, Ambulating, Urinating, Other (The pt stated her pain was controlled.) - Patient Data Vitals - Most Recent: Last Vital Signs Temp 98.4 F 03/12/17 07:32 Pulse 101 H 03/12/17 07:32 Resp 17 03/12/17 07:32 BP 129/75 03/12/17 07:32 Pulse Ox 96 03/12/17 07:32 Weight - Most Recent: 143 lb 9.6 oz I&O - Last 24 Hours: Intake & Output 03/11/17 03/12/17 03/12/17 22:59 06:59 14:59 Intake Total 1640 4072 Output Total 100 1250 Balance 1540 2822 Lab Results Last 24 Hrs: Laboratory Results - last 24 hr 03/12/17 03/12/17 03/12/17 Range/Units 06:00 06:00 06:00 WBC 6.74 (3.98-10.04) K/mm3 RBC 2.84 L (3.98-5.22) M/mm3 Hgb 9.8 L (11.2-15.7) gm/L Hct 29.7 L (34.1-44.9) % MCV 104.6 H (79.4-94.8) fl MCH 34.5 H (25.6-32.2) pg MCHC 33.0 (32.2-35.5) g/dl RDW Std Deviation 44.4 (36.4-46.3) fL Plt Count 173 L (182-369) K/mm3 MPV 9.7 (9.4-12.3) fl Sodium 131 L (136-145) mEq/L Potassium 2.9 L (3.5-5.1) mEq/L Chloride 95 L (98-107) mEq/L Carbon Dioxide 25 (21-32) mEq/L Anion Gap 13.9 (5-15) BUN 4 L (7-18) mg/dL Creatinine 0.6 (0.55-1.02) mg/dL Est Cr Clr Drug Dosing 101.53 mL/min Estimated GFR (MDRD) > 60 (>60) mL/min BUN/Creatinine Ratio 6.7 L (14-18) Glucose 123 H (74-106) mg/dL Calcium 8.0 L (8.5-10.1) mg/dL Magnesium 1.5 L (1.8-2.4) mg/dl Total Bilirubin 1.3 H (0.2-1.0) mg/dL AST 66 H (15-37) U/L ALT 65 H (14-59) U/L Alkaline Phosphatase 119 H (46-116) U/L Total Protein 6.1 L (6.4-8.2) g/dl Albumin 2.8 L (3.4-5.0) g/dl Globulin 3.3 gm/dL Albumin/Globulin Ratio 0.9 L (1-2) Med Orders - Current: Current Medications Aspirin (Ecotrin) 325 mg PO DAILY [facility] Last Admin: 03/12/17 08:08 Dose: 325 mg Bisacodyl (Dulcolax) 5 mg PO DAILY PRN PRN Reason: Constipation Chlordiazepoxide HCl (Librium) 25 mg PO TID [facility] Diphenhydramine HCl (Benadryl) 25 mg IVPUSH Q4H PRN PRN Reason: Nausea Docusate Sodium (Colace) 100 mg PO BID PRN PRN Reason: Constipation Famotidine (Pepcid) 20 mg PO Q12H [facility] Last Admin: 03/12/17 08:09 Dose: 20 mg Haloperidol Lactate (Haldol) 1 mg IVPUSH Q8H PRN PRN Reason: restlessness Cefazolin Sodium/Dextrose 2 gm (/ Premix) 50 mls @ 100 mls/hr IV Q8H [facility] Stop: 03/12/17 14:29 Last Admin: 03/12/17 05:26 Dose: 100 mls/hr Potassium Chloride/Sodium Chloride (Normal Saline With 20 Meq Kcl) 1,000 mls @ 100 mls/hr IV ASDIRECTED [facility] Last Admin: 03/12/17 08:08 Dose: 100 mls/hr Magnesium Sulfate 2 gm/ Premix 50 mls @ 25 mls/hr IV ONETIME ONE Stop: 03/12/17 11:59 Last Admin: 03/12/17 10:43 Dose: 25 mls/hr Lorazepam (Ativan) 1 mg IVPUSH Q6H PRN PRN Reason: Anxiety Magnesium Hydroxide (Milk Of Magnesia) 30 ml PO BID PRN PRN Reason: Constipation Meperidine HCl (Demerol) 12.5 mg IVPUSH ONETIME PRN PRN Reason: Shivering Morphine Sulfate (Morphine) 2 mg IVPUSH Q2H PRN PRN Reason: Breakthrough Pain Last Admin: 03/12/17 06:43 Dose: 2 mg Naloxone HCl (Narcan) 0.1 mg IVPUSH Q5M PRN PRN Reason: Oversedation Nicotine (Habitrol) 21 mg TRDERM DAILY [facility] Last Admin: 03/12/17 08:17 Dose: 21 mg Ondansetron HCl (Zofran) 4 mg IVPUSH Q6H PRN PRN Reason: Nausea/Vomiting Oxycodone/Acetaminophen (Percocet 325-5 Mg) 1 - 2 tab PO Q4H PRN PRN Reason: Pain Last Admin: 03/12/17 08:10 Dose: 2 tab Potassium Chloride (Klor-Con M20) 40 meq PO Q4H [facility] Stop: 03/12/17 13:01 Last Admin: 03/12/17 08:09 Dose: 40 meq Senna (Senna) 8.6 mg PO BID PRN PRN Reason: Constipation Discontinued Medications Bupivacaine HCl (Marcaine 0.25%) Confirm Administered Dose 30 ml .ROUTE .STK- MED ONE Stop: 03/11/17 07:48 Last Admin: 03/11/17 09:05 Dose: 30 ml Cefazolin Sodium (Ancef) Confirm Administered Dose 2 gm .ROUTE .STK-MED ONE Stop: 03/11/17 07:41 Cefazolin Sodium (Ancef) Confirm Administered Dose 2 gm .ROUTE .STK-MED ONE Stop: 03/11/17 14:12 Chlordiazepoxide HCl (Librium) 25 mg PO TID [facility] Chlordiazepoxide HCl (Librium) 10 mg PO TID [facility] Last Admin: 03/11/17 22:03 Dose: 10 mg Chlordiazepoxide HCl (Librium) 50 mg PO ONETIME ONE Stop: 03/12/17 07:32 Last Admin: 03/12/17 08:09 Dose: 50 mg Dexamethasone (Dexamethasone) Confirm Administered Dose 4 mg .ROUTE .STK-MED ONE Stop: 03/11/17 07:40 Diphenhydramine HCl (Benadryl) 25 mg IVPUSH Q6H PRN PRN Reason: Pruritis Fentanyl (Sublimaze) Confirm Administered Dose 250 mcg .ROUTE .STK-MED ONE Stop: 03/11/17 07:39 Fentanyl (Sublimaze) Confirm Administered Dose 250 mcg .ROUTE .STK-MED ONE Stop: 03/11/17 10:32 Fentanyl (Sublimaze) Confirm Administered Dose 100 mcg .ROUTE .STK-MED ONE Stop: 03/11/17 14:16 Fentanyl (Sublimaze) 50 mcg IVPUSH Q5M PRN PRN Reason: Pain Hydromorphone HCl (Dilaudid) Confirm Administered Dose 1 mg .ROUTE .STK-MED ONE Stop: 03/11/17 09:57 Hydromorphone HCl (Dilaudid) Confirm Administered Dose 1 mg .ROUTE .STK-MED ONE Stop: 03/11/17 10:28 Hydromorphone HCl (Dilaudid) Confirm Administered Dose 1 mg .ROUTE .STK-MED ONE Stop: 03/11/17 13:30 Hydromorphone HCl (Dilaudid) 0.5 mg IVPUSH Q15M PRN PRN Reason: Pain (severe 7-10) Last Admin: 03/11/17 20:18 Dose: 0.5 mg Lactated Ringer's (Ringers, Lactated) 1,000 mls @ 125 mls/hr IV ASDIRECTED [facility] Lactated Ringer's (Ringers, Lactated) 1,000 mls @ 125 mls/hr IV ASDIRECTED [facility] Stop: 03/11/17 23:00 Last Admin: 03/11/17 21:33 Dose: 125 mls/hr Lidocaine HCl (Xylocaine-Mpf 1%) Confirm Administered Dose 4 mls @ as directed .ROUTE .STK-MED ONE Stop: 03/11/17 07:40 Lactated Ringer's (Ringers, Lactated) Confirm Administered Dose 1,000 mls @ as directed .ROUTE .STK-MED ONE Stop: 03/11/17 13:05 Lactated Ringer's (Ringers, Lactated) Confirm Administered Dose 1,000 mls @ as directed .ROUTE .STK-MED ONE Stop: 03/11/17 13:05 Lidocaine/Sodium Bicarbonate (Buffered Lidocaine 1% In Ns 8.4%) 0.25 ml IV ONETIME PRN PRN Reason: Prior to IV Start Lidocaine/Sodium Bicarbonate (Buffered Lidocaine 1% In Ns 8.4%) 0.25 ml .XX ONETIME PRN PRN Reason: Prior to IV Start Stop: 03/11/17 18:00 Last Admin: 03/11/17 07:38 Dose: 0.25 ml Lorazepam (Ativan) 2 mg IVPUSH Q6H PRN PRN Reason: Anxiety Midazolam HCl (Versed 1 Mg/Ml) Confirm Administered Dose 2 mg .ROUTE .STK-MED ONE Stop: 03/11/17 07:38 Ondansetron HCl (Zofran) Confirm Administered Dose 4 mg .ROUTE .STK-MED ONE Stop: 03/11/17 07:40 Ondansetron HCl (Zofran) 4 mg IVPUSH ONETIME PRN PRN Reason: Nausea/Vomiting Propofol (Diprivan 20 Ml) Confirm Administered Dose 200 mg .ROUTE .STK-MED ONE Stop: 03/11/17 07:38 Rocuronium [place] (Zemuron) Confirm Administered Dose 50 mg .ROUTE .STK-MED ONE Stop: 03/11/17 07:40 Sodium Chloride (Saline Flush) 10 ml FLUSH ASDIRECTED PRN PRN Reason: Keep Vein Open Sodium Chloride (Saline Flush) 10 ml FLUSH ASDIRECTED PRN PRN Reason: Keep Vein Open Stop: 03/11/17 18:00 - Exam Wound/Incisions: Dressing Dry and Intact General: Alert, Cooperative, No Acute Distress Lungs: Normal Respiratory Effort Extremities: Other (The pt was able to flex and extend fingers without complaint. NVS intact for LUE. Left shoulder motion WFL.) - Problem List Review Problem List Initiated/Reviewed/Updated: Yes - My Orders Last 24 Hours: Active Orders 24 hr Category Date Time Status Admission Status [Patient Status] [ADT] Routine ADT 03/12/17 07:50 Active Ambulate [RC] PER UNIT ROUTINE Care 03/11/17 16:21 Active Antiembolic Devices [RC] QSHIFT Care 03/11/17 16:24 Active Communication Order [RC] ROUTINE Care 03/11/17 16:33 Inactive Elevate Extremity [RC] CONTINUOUS Care 03/11/17 18:03 Active May Shower [RC] ASDIRECTED Care 03/11/17 16:21 Active Notify Provider Consults [RC] ASDIRECTED Care 03/11/17 16:24 Active Notify Provider [RC] ASDIRECTED Care 03/11/17 16:33 Active Oxygen Therapy [RC] ASDIRECTED Care 03/11/17 16:33 Inactive Oxygen Therapy [RC] PRN Care 03/11/17 16:21 Active Pulse Oximetry [RC] ASDIRECTED Care 03/11/17 16:33 Active RT Incentive Spirometry [RC] Q2HWA Care 03/11/17 16:22 Active Up to Chair [RC] ASDIRECTED Care 03/11/17 16:21 Active Vital Signs [RC] Q15M Care 03/11/17 16:33 Inactive Vital Signs [RC] Q4HR Care 03/11/17 16:21 Active Consult to Case Management [CONS] Routine Cons 03/11/17 16:21 Active Consult to Physician [CONS] Routine Cons 03/11/17 16:21 Active Regular Diet [DIET] Diet 03/11/17 Dinner Active Acetaminophen/oxyCODONE [Percocet 325-5 MG] Med 03/11/17 16:21 Active 1 - 2 tab PO Q4H PRN Aspirin [Ecotrin] Med 03/12/17 09:00 Active 325 mg PO DAILY Bisacodyl [Dulcolax] Med 03/11/17 16:21 Active 5 mg PO DAILY PRN Docusate Sodium [Colace] Med 03/11/17 16:21 Active 100 mg PO BID PRN Famotidine [Pepcid] Med 03/11/17 21:00 Active 20 mg PO Q12H Haloperidol Lactate [Haldol] Med 03/11/17 18:58 Active 1 mg IVPUSH Q8H PRN LORazepam [Ativan] Med 03/11/17 19:15 Active 1 mg IVPUSH Q6H PRN Magnesium Hydroxide [Milk of Magnesia] Med 03/11/17 16:21 Active 30 ml PO BID PRN Magnesium Sulfate/Water [Magnesium Sulfate 2 GM in Med 03/12/17 10:00 Active Water 50 ML] 2 gm Premix Bag 1 bag IV ONETIME Meperidine [Demerol] Med 03/11/17 16:33 Active 12.5 mg IVPUSH ONETIME PRN Morphine Med 03/11/17 16:21 Active 2 mg IVPUSH Q2H PRN NS + KCl 20mEq/L [Normal Saline with 20 mEq KCl] 1,000 Med 03/12/17 07:45 Active ml IV ASDIRECTED Naloxone [Narcan] Med 03/11/17 16:21 Active 0.1 mg IVPUSH Q5M PRN Nicotine [Habitrol] Med 03/11/17 19:45 Active 21 mg TRDERM DAILY Ondansetron [Zofran] Med 03/11/17 16:21 Active 4 mg IVPUSH Q6H PRN Potassium Chloride [Klor-Con M20] Med 03/12/17 09:00 Active 40 meq PO Q4H Sennosides [Senna] Med 03/11/17 16:21 Active 8.6 mg PO BID PRN ceFAZolin [Ancef] 2 gm Med 03/11/17 22:00 Active Premix Bag 1 bag IV Q8H chlordiazePOXIDE [Librium] Med 03/12/17 12:00 Active 25 mg PO TID diphenhydrAMINE [Benadryl] Med 03/11/17 16:21 Active 25 mg IVPUSH Q4H PRN Antiembolic Hose [OM.PC] Per Unit Routine Oth 03/11/17 16:23 Ordered Ice Therapy [OM.PC] Per Unit Routine Oth 03/11/17 16:22 Ordered Resuscitation Status Routine Resus Stat 03/11/17 16:21 Ordered Medication Orders Aspirin (Ecotrin) 325 mg PO DAILY [facility] Last Admin: 03/12/17 08:08 Dose: 325 mg Bisacodyl (Dulcolax) 5 mg PO DAILY PRN PRN Reason: Constipation Chlordiazepoxide HCl (Librium) 25 mg PO TID [facility] Diphenhydramine HCl (Benadryl) 25 mg IVPUSH Q4H PRN PRN Reason: Nausea Docusate Sodium (Colace) 100 mg PO BID PRN PRN Reason: Constipation Famotidine (Pepcid) 20 mg PO Q12H [facility] Last Admin: 03/12/17 08:09 Dose: 20 mg Admin: 03/11/17 20:00 Dose: 20 mg Haloperidol Lactate (Haldol) 1 mg IVPUSH Q8H PRN PRN Reason: restlessness Cefazolin Sodium/Dextrose 2 gm (/ Premix) 50 mls @ 100 mls/hr IV Q8H [facility] Stop: 03/12/17 14:29 Last Admin: 03/12/17 05:26 Dose: 100 mls/hr Infusion: 03/11/17 22:18 Dose: 100 mls/hr Admin: 03/11/17 21:48 Dose: 100 mls/hr Potassium Chloride/Sodium Chloride (Normal Saline With 20 Meq Kcl) 1,000 mls @ 100 mls/hr IV ASDIRECTED [facility] Last Admin: 03/12/17 08:08 Dose: 100 mls/hr Magnesium Sulfate 2 gm/ Premix 50 mls @ 25 mls/hr IV ONETIME ONE Stop: 03/12/17 11:59 Last Admin: 03/12/17 10:43 Dose: 25 mls/hr Lorazepam (Ativan) 1 mg IVPUSH Q6H PRN PRN Reason: Anxiety Magnesium Hydroxide (Milk Of Magnesia) 30 ml PO BID PRN PRN Reason: Constipation Meperidine HCl (Demerol) 12.5 mg IVPUSH ONETIME PRN PRN Reason: Shivering Morphine Sulfate (Morphine) 2 mg IVPUSH Q2H PRN PRN Reason: Breakthrough Pain Last Admin: 03/12/17 06:43 Dose: 2 mg Admin: 03/12/17 00:12 Dose: 2 mg Naloxone HCl (Narcan) 0.1 mg IVPUSH Q5M PRN PRN Reason: Oversedation Nicotine (Habitrol) 21 mg TRDERM DAILY [facility] Last Admin: 03/12/17 08:17 Dose: 21 mg Admin: 03/11/17 20:00 Dose: 21 mg Ondansetron HCl (Zofran) 4 mg IVPUSH Q6H PRN PRN Reason: Nausea/Vomiting Oxycodone/Acetaminophen (Percocet 325-5 Mg) 1 - 2 tab PO Q4H PRN PRN Reason: Pain Last Admin: 03/12/17 08:10 Dose: 2 tab Admin: 03/12/17 04:06 Dose: 2 tab Admin: 03/12/17 00:25 Dose: 2 tab Admin: 03/11/17 18:40 Dose: 2 tab Potassium Chloride (Klor-Con M20) 40 meq PO Q4H [facility] Stop: 03/12/17 13:01 Last Admin: 03/12/17 08:09 Dose: 40 meq Senna (Senna) 8.6 mg PO BID PRN PRN Reason: Constipation - Assessment Assessment (Free Text/Narrative):: POD#1 - s/p ORIF of left intra-articular distal humerus fracture - Plan Plan (Free Text/Narrative):: 1. 325mg ASA daily, frequent mobility, SCDs, TEDs. 2. Further orders per Hospitalist service. The pt will remain in Hospital for further monitoring. 3. LUE immobilized. Elevation, ice. The pt's case was discussed with Dr. Felton.
[2017-03-12] MEDS: chlordiazePOXIDE 25 MG Cap PO SCH ×3 (12:57→20:05)
[2017-03-12] MEDS: Thiamine 100 MG Tab PO SCH (16:09)
[2017-03-12] MEDS: Folic Acid 1 MG Tab PO SCH (16:09)
[2017-03-12] MEDS: Multivitamins,Therapeutic Tab PO SCH (16:09)
[2017-03-13] MEDS: Acetaminophen/oxyCODONE 325-5 MG Tab PO PRN ×2 (05:10→08:54)
[2017-03-13] MEDS: NS + KCl 20mEq/L 1,000 ML IV SCH (05:10)
--- NOTE | 2017-03-13 07:21 | PCM.CONSN ---
<Elisa Mar M - Last Filed: 03/13/17 11:17> - General Info Date of Service: 03/13/17 Admission Dx/Problem (Free Text): POD #2, ORIF lt elbow with Dr. Jose Francisco Leija is seen this morning. She is awake, alert. Sitting up in chair. Denies CP, SOB, cough, wheeze, abd or back pain. No nausea/vomiting. Nursing reports has been up most of the night. Functional Status: Reports: Pain Controlled, Tolerating Diet, Ambulating, Urinating, Incentive Spirometry - Review of Systems General: Reports: No Symptoms HEENT: Reports: No Symptoms Pulmonary: Reports: No Symptoms Cardiovascular: Reports: No Symptoms Gastrointestinal: Reports: No Symptoms Genitourinary: Reports: No Symptoms Musculoskeletal: Reports: Arm Pain Skin: Reports: No Symptoms Neurological: Reports: No Symptoms Psychiatric: Reports: No Symptoms, Anxiety - Patient Data Vitals - Most Recent: Last Vital Signs Temp 99.7 F 03/13/17 04:24 Pulse 113 H 03/13/17 04:24 Resp 16 03/13/17 04:24 BP 143/94 H 03/13/17 04:25 Pulse Ox 100 03/13/17 04:24 Weight - Most Recent: 65.227 kg I&O - Last 24 Hours: Intake & Output 03/12/17 03/13/17 03/13/17 22:59 06:59 14:59 Intake Total 3430 1287 2200 Output Total 2400 Balance 1030 1287 2200 Lab Results Last 24 Hours: Laboratory Results - last 24 hr 03/12/17 03/12/17 03/13/17 Range/Units 06:00 06:00 06:45 WBC 8.49 (3.98-10.04) K/mm3 RBC 2.86 L (3.98-5.22) M/mm3 Hgb 10.0 L (11.2-15.7) gm/L Hct 30.5 L (34.1-44.9) % MCV 106.6 H (79.4-94.8) fl MCH 35.0 H (25.6-32.2) pg MCHC 32.8 (32.2-35.5) g/dl RDW Std Deviation 46.5 H (36.4-46.3) fL Plt Count 189 (182-369) K/mm3 MPV 9.3 L (9.4-12.3) fl Neut % (Auto) 77.6 H (34.0-71.1) % Lymph % (Auto) 13.0 L (19.3-51.7) % [place] % (Auto) 8.5 (4.7-12.5) % Eos % (Auto) 0.6 L (0.7-5.8) Baso % (Auto) 0.1 (0.1-1.2) % Neut # (Auto) 6.59 H (1.56-6.13) K/mm3 Lymph # (Auto) 1.10 L (1.18-3.74) K/mm3 [place] # (Auto) 0.72 H (0.24-0.36) K/mm3 Eos # (Auto) 0.05 (0.04-0.36) K/mm3 Baso # (Auto) 0.01 (0.01-0.08) K/mm3 Sodium 131 L (136-145) mEq/L Potassium 2.9 L (3.5-5.1) mEq/L Chloride 95 L (98-107) mEq/L Carbon Dioxide 25 (21-32) mEq/L Anion Gap 13.9 (5-15) BUN 4 L (7-18) mg/dL Creatinine 0.6 (0.55-1.02) mg/dL Est Cr Clr Drug Dosing 101.53 mL/min Estimated GFR (MDRD) > 60 (>60) mL/min BUN/Creatinine Ratio 6.7 L (14-18) Glucose 123 H (74-106) mg/dL Calcium 8.0 L (8.5-10.1) mg/dL Magnesium 1.5 L (1.8-2.4) mg/dl Total Bilirubin 1.3 H (0.2-1.0) mg/dL AST 66 H (15-37) U/L ALT 65 H (14-59) U/L Alkaline Phosphatase 119 H (46-116) U/L Total Protein 6.1 L (6.4-8.2) g/dl Albumin 2.8 L (3.4-5.0) g/dl Globulin 3.3 gm/dL Albumin/Globulin Ratio 0.9 L (1-2) Med Orders - Current: Current Medications Aspirin (Ecotrin) 325 mg PO DAILY [facility] Last Admin: 03/12/17 08:08 Dose: 325 mg Bisacodyl (Dulcolax) 5 mg PO DAILY PRN PRN Reason: Constipation Chlordiazepoxide HCl (Librium) 25 mg PO TID [facility] Last Admin: 03/12/17 20:05 Dose: 25 mg Diphenhydramine HCl (Benadryl) 25 mg IVPUSH Q4H PRN PRN Reason: Nausea Last Admin: 03/12/17 11:59 Dose: 25 mg Docusate Sodium (Colace) 100 mg PO BID PRN PRN Reason: Constipation Famotidine (Pepcid) 20 mg PO Q12H [facility] Last Admin: 03/12/17 20:05 Dose: 20 mg Folic Acid (Folic Acid) 1 mg PO DAILY [facility] Last Admin: 03/12/17 16:09 Dose: 1 mg Haloperidol Lactate (Haldol) 1 mg IVPUSH Q8H PRN PRN Reason: restlessness Lorazepam (Ativan) 1 mg IVPUSH Q6H PRN PRN Reason: Anxiety Magnesium Hydroxide (Milk Of Magnesia) 30 ml PO BID PRN PRN Reason: Constipation Morphine Sulfate (Morphine) 2 mg IVPUSH Q2H PRN PRN Reason: Breakthrough Pain Last Admin: 03/12/17 06:43 Dose: 2 mg Multivitamins (Thera) 1 each PO DAILY [facility] Last Admin: 03/12/17 16:09 Dose: 1 each Naloxone HCl (Narcan) 0.1 mg IVPUSH Q5M PRN PRN Reason: Oversedation Nicotine (Habitrol) 21 mg TRDERM DAILY [facility] Last Admin: 03/12/17 08:17 Dose: 21 mg Ondansetron HCl (Zofran) 4 mg IVPUSH Q6H PRN PRN Reason: Nausea/Vomiting Oxycodone/Acetaminophen (Percocet 325-5 Mg) 1 - 2 tab PO Q4H PRN PRN Reason: Pain Last Admin: 03/13/17 05:10 Dose: 2 tab Senna (Senna) 8.6 mg PO BID PRN PRN Reason: Constipation Thiamine HCl (Vitamin B-1) 100 mg PO DAILY [facility] Last Admin: 03/12/17 16:09 Dose: 100 mg Discontinued Medications Bupivacaine HCl (Marcaine 0.25%) Confirm Administered Dose 30 ml .ROUTE .STK- MED ONE Stop: 03/11/17 07:48 Last Admin: 03/11/17 09:05 Dose: 30 ml Cefazolin Sodium (Ancef) Confirm Administered Dose 2 gm .ROUTE .STK-MED ONE Stop: 03/11/17 07:41 Cefazolin Sodium (Ancef) Confirm Administered Dose 2 gm .ROUTE .STK-MED ONE Stop: 03/11/17 14:12 Chlordiazepoxide HCl (Librium) 25 mg PO TID [place] Chlordiazepoxide HCl (Librium) [address] Last Admin: 03/11/17 22:03 Dose: 10 mg Chlordiazepoxide HCl (Librium) 50 mg PO ONETIME ONE Stop: 03/12/17 07:32 Last Admin: 03/12/17 08:09 Dose: 50 mg Dexamethasone (Dexamethasone) Confirm Administered Dose 4 mg .ROUTE .STK-MED ONE Stop: 03/11/17 07:40 Diphenhydramine HCl (Benadryl) 25 mg IVPUSH Q6H PRN PRN Reason: Pruritis Fentanyl (Sublimaze) Confirm Administered Dose 250 mcg .ROUTE .STK-MED ONE Stop: 03/11/17 07:39 Fentanyl (Sublimaze) Confirm Administered Dose 250 mcg .ROUTE .STK-MED ONE Stop: 03/11/17 10:32 Fentanyl (Sublimaze) Confirm Administered Dose 100 mcg .ROUTE .STK-MED ONE Stop: 03/11/17 14:16 Fentanyl (Sublimaze) 50 mcg IVPUSH Q5M PRN PRN Reason: Pain Hydromorphone HCl (Dilaudid) Confirm Administered Dose 1 mg .ROUTE .STK-MED ONE Stop: 03/11/17 09:57 Hydromorphone HCl (Dilaudid) Confirm Administered Dose 1 mg .ROUTE .STK-MED ONE Stop: 03/11/17 10:28 Hydromorphone HCl (Dilaudid) Confirm Administered Dose 1 mg .ROUTE .STK-MED ONE Stop: 03/11/17 13:30 Hydromorphone HCl (Dilaudid) 0.5 mg IVPUSH Q15M PRN PRN Reason: Pain (severe 7-10) Last Admin: 03/11/17 20:18 Dose: 0.5 mg Lactated Ringer's (Ringers, Lactated) 1,000 mls @ 125 mls/hr IV ASDIRECTED [facility] Lactated Ringer's (Ringers, Lactated) 1,000 mls @ 125 mls/hr IV ASDIRECTED [facility] Stop: 03/11/17 23:00 Last Admin: 03/11/17 21:33 Dose: 125 mls/hr Lidocaine HCl (Xylocaine-Mpf 1%) Confirm Administered Dose 4 mls @ as directed .ROUTE .STK-MED ONE Stop: 03/11/17 07:40 Lactated Ringer's (Ringers, Lactated) Confirm Administered Dose 1,000 mls @ as directed .ROUTE .STK-MED ONE Stop: 03/11/17 13:05 Lactated Ringer's (Ringers, Lactated) Confirm Administered Dose 1,000 mls @ as directed .ROUTE .STK-MED ONE Stop: 03/11/17 13:05 Cefazolin Sodium/Dextrose 2 gm (/ Premix) 50 mls @ 100 mls/hr IV Q8H [facility] Stop: 03/12/17 14:29 Last Admin: 03/12/17 15:00 Dose: 100 mls/hr Potassium Chloride/Sodium Chloride (Normal Saline With 20 Meq Kcl) 1,000 mls @ 100 mls/hr IV ASDIRECTED [facility] Last Admin: 03/13/17 05:10 Dose: 100 mls/hr Magnesium Sulfate 2 gm/ Premix 50 mls @ 25 mls/hr IV ONETIME ONE Stop: 03/12/17 11:59 Last Admin: 03/12/17 10:43 Dose: 25 mls/hr Lidocaine/Sodium Bicarbonate (Buffered Lidocaine 1% In Ns 8.4%) 0.25 ml IV ONETIME PRN PRN Reason: Prior to IV Start Lidocaine/Sodium Bicarbonate (Buffered Lidocaine 1% In Ns 8.4%) 0.25 ml .XX ONETIME PRN PRN Reason: Prior to IV Start Stop: 03/11/17 18:00 Last Admin: 03/11/17 07:38 Dose: 0.25 ml Lorazepam (Ativan) 2 mg IVPUSH Q6H PRN PRN Reason: Anxiety Meperidine HCl (Demerol) 12.5 mg IVPUSH ONETIME PRN PRN Reason: Shivering Midazolam HCl (Versed 1 Mg/Ml) Confirm Administered Dose 2 mg .ROUTE .STK-MED ONE Stop: 03/11/17 07:38 Ondansetron HCl (Zofran) Confirm Administered Dose 4 mg .ROUTE .STK-MED ONE Stop: 03/11/17 07:40 Ondansetron HCl (Zofran) 4 mg IVPUSH ONETIME PRN PRN Reason: Nausea/Vomiting Potassium Chloride (Klor-Con M20) [address] Stop: 03/12/17 13:01 Last Admin: 03/12/17 12:57 Dose: 40 meq Propofol (Diprivan 20 Ml) Confirm Administered Dose 200 mg .ROUTE .STK-MED ONE Stop: 03/11/17 07:38 Rocuronium Clovis (Zemuron) Confirm Administered Dose 50 mg .ROUTE .STK-MED ONE Stop: 03/11/17 07:40 Sodium Chloride (Saline Flush) 10 ml FLUSH ASDIRECTED PRN PRN Reason: Keep Vein Open Sodium Chloride (Saline Flush) 10 ml FLUSH ASDIRECTED PRN PRN Reason: Keep Vein Open Stop: 03/11/17 18:00 - Exam Quality Assessment: DVT Prophylaxis General: Alert, Oriented, Cooperative, No Acute Distress HEENT: Pupils Equal, EOMI, Mucous Membr. Moist/[place] Neck: Supple, No JVD Lungs: Clear to Auscultation, Normal Respiratory Effort Cardiovascular: Regular Rate, Regular Rhythm GI/Abdominal Exam: Normal Bowel Sounds, Soft, Non-Tender (Female) Exam: Deferred Extremities: Other (postop splint to left arm; CMS is + and = bilat to UE. ) Wound/Incisions: Dressing Dry and Intact Neurological: No New Focal Deficit Psy/Mental Status: Alert, Normal Affect, Normal Mood, Anxious Consult PN Assessment/Plan POD#: 2 Procedures: Procedures APPLY LONG ARM SPLINT (03/05/17) COMPLETE CBC AUTOMATED (03/06/17) COMPREHEN METABOLIC PANEL (03/06/17) EMERGENCY DEPT VISIT (03/05/17) MR-STAPH DNA AMP PROBE (03/06/17) ROUTINE VENIPUNCTURE (03/06/17) X-RAY EXAM OF ELBOW (03/05/17) (1) Fracture of humerus SNOMED Code(s): 80736658 Code(s): S42.309A - UNSP FRACTURE OF SHAFT OF HUMERUS, UNSP ARM, INIT Priority: High Current Visit: Yes QualifierTitle: Encounter type: initial encounter Humerus Location: distal Fracture type: closed Fracture morphology: other fracture Fracture alignment: displaced Laterality: left Qualified Code(s): S42.492A - Other displaced fracture of lower end of left humerus, initial encounter for closed fracture (2) Alcohol abuse SNOMED Code(s): 59144926 Code(s): F10.10 - ALCOHOL ABUSE, UNCOMPLICATED Priority: Medium Current Visit: Yes (3) Tobacco abuse SNOMED Code(s): 122709287 Code(s): Z72.0 - TOBACCO USE Priority: Medium Current Visit: Yes Problem List Initiated/Reviewed/Updated: Yes My Orders Last 24 Hours: My Active Orders 03/12/17 07:50 Admission Status [Patient Status] [ADT] Routine 03/12/17 12:00 chlordiazePOXIDE [Librium] 25 mg PO TID 03/13/17 06:45 BASIC METABOLIC PANEL,BMP [CHEM] DAILY CBC WITH AUTO DIFF [HEME] DAILY HEPATIC FUNCTION PANEL,HFP [CHEM] Routine MAGNESIUM [CHEM] DAILY 03/14/17 06:30 BASIC METABOLIC PANEL,BMP [CHEM] DAILY CBC WITH AUTO DIFF [HEME] DAILY MAGNESIUM [CHEM] DAILY 03/15/17 06:30 BASIC METABOLIC PANEL,BMP [CHEM] DAILY CBC WITH AUTO DIFF [HEME] DAILY MAGNESIUM [CHEM] DAILY 03/16/17 06:30 BASIC METABOLIC PANEL,BMP [CHEM] DAILY CBC WITH AUTO DIFF [HEME] DAILY MAGNESIUM [CHEM] DAILY Plan: I/P: S/P ORIF lt distal humerus fracture, POD # 2, Dr. Felton - Pain management and DVT prophylax - PT/OT - RT/IS - Hgb 9.8-->10.0--preop 13.3 Hypokalemia: 2.9--normalized today -NS with 20 KCL at 100cc/hr -KCL 40meq BID today -Check mag- suspect will be low -Follow K+ with am labs -Place on telemetry Hyponatremia- mild at 131--normalized today -NS with 20KCL as above -Follow with am labs Chronic conditions: Alcohol use/abuse-- macrocytosis, elevated LFT's -Follow LFT's- improved today -Folic acid and thiamin PO -Recommend outpatient alcohol counseling -CIW[facility] protocol with ativan PRN--to be discontinued at discharge -Librium--to be discontinued at discharge Nicotine addiction- nicotine patch--cessation recommended Other: GI Prophylax- Pepcid BID CM/SW for DC planning--Patient ok for discharge from Hospitalist standpoint today with above recommendations: Alcohol counseling after discharge, continue thiamine and folic acid, recommend alcohol and tobacco cessation. This is all placed in patient's DC instructions today by this provider. Patient is Full Code status. <Ludmila Malone M - Last Filed: 03/13/17 12:17> - Patient Data Vitals - Most Recent: Last Vital Signs Temp 37.6 C 03/13/17 04:24 Pulse 113 H 03/13/17 04:24 Resp 16 03/13/17 04:24 BP 143/94 H 03/13/17 04:25 Pulse Ox 100 03/13/17 04:24 I&O - Last 24 Hours: Intake & Output 03/12/17 03/13/17 03/13/17 22:59 06:59 14:59 Intake Total 3430 1287 2380 Output Total 2400 Balance 1030 1287 2380 Lab Results Last 24 Hours: Laboratory Results - last 24 hr 03/13/17 03/13/17 03/13/17 Range/Units 06:45 06:45 06:45 WBC 8.49 (3.98-10.04) K/mm3 RBC 2.86 L (3.98-5.22) M/mm3 Hgb 10.0 L (11.2-15.7) gm/L Hct 30.5 L (34.1-44.9) % MCV 106.6 H (79.4-94.8) fl MCH 35.0 H (25.6-32.2) pg MCHC 32.8 (32.2-35.5) g/dl RDW Std Deviation 46.5 H (36.4-46.3) fL Plt Count 189 (182-369) K/mm3 MPV 9.3 L (9.4-12.3) fl Neut % (Auto) 77.6 H (34.0-71.1) % Lymph % (Auto) 13.0 L (19.3-51.7) % [place] % (Auto) 8.5 (4.7-12.5) % Eos % (Auto) 0.6 L (0.7-5.8) Baso % (Auto) 0.1 (0.1-1.2) % Neut # (Auto) 6.59 H (1.56-6.13) K/mm3 Lymph # (Auto) 1.10 L (1.18-3.74) K/mm3 [place] # (Auto) 0.72 H (0.24-0.36) K/mm3 Eos # (Auto) 0.05 (0.04-0.36) K/mm3 Baso # (Auto) 0.01 (0.01-0.08) K/mm3 Manual Slide Review Abnormal smear Sodium 138 (136-145) mEq/L Potassium 4.7 (3.5-5.1) mEq/L Chloride 106 (98-107) mEq/L Carbon Dioxide 21 (21-32) mEq/L Anion Gap 15.7 H (5-15) BUN 3 L (7-18) mg/dL Creatinine 0.6 (0.55-1.02) mg/dL Est Cr Clr Drug Dosing 101.53 mL/min Estimated GFR (MDRD) > 60 (>60) mL/min BUN/Creatinine Ratio 5.0 L (14-18) Glucose 108 H (74-106) mg/dL Calcium 8.1 L (8.5-10.1) mg/dL Magnesium 1.9 (1.8-2.4) mg/dl Total Bilirubin 0.8 (0.2-1.0) mg/dL Direct Bilirubin 0.20 (0.0-0.2) mg/dl Indirect Bilirubin 0.60 AST 46 H (15-37) U/L ALT 52 (14-59) U/L Alkaline Phosphatase 105 (46-116) U/L Total Protein 6.5 (6.4-8.2) g/dl Albumin 2.8 L (3.4-5.0) g/dl Globulin 3.7 gm/dL Albumin/Globulin Ratio 0.8 L (1-2) Med Orders - Current: Current Medications Aspirin (Ecotrin) [address] Last Admin: 03/13/17 08:54 Dose: 325 mg Bisacodyl (Dulcolax) 5 mg PO DAILY PRN PRN Reason: Constipation Chlordiazepoxide HCl (Librium) 25 mg PO TID [facility] Last Admin: 03/13/17 08:54 Dose: 25 mg Diphenhydramine HCl (Benadryl) 25 mg IVPUSH Q4H PRN PRN Reason: Nausea Last Admin: 03/12/17 11:59 Dose: 25 mg Docusate Sodium (Colace) 100 mg PO BID PRN PRN Reason: Constipation Famotidine (Pepcid) 20 mg PO Q12H [facility] Last Admin: 03/13/17 08:54 Dose: 20 mg Folic Acid (Folic Acid) 1 mg PO DAILY [facility] Last Admin: 03/13/17 08:54 Dose: 1 mg Haloperidol Lactate (Haldol) 1 mg IVPUSH Q8H PRN PRN Reason: restlessness Lorazepam (Ativan) 1 mg IVPUSH Q6H PRN PRN Reason: Anxiety Last Admin: 03/13/17 10:22 Dose: 1 mg Magnesium Hydroxide (Milk Of Magnesia) 30 ml PO BID PRN PRN Reason: Constipation Morphine Sulfate (Morphine) 2 mg IVPUSH Q2H PRN PRN Reason: Breakthrough Pain Last Admin: 03/12/17 06:43 Dose: 2 mg Multivitamins (Thera) 1 each PO DAILY [facility] Last Admin: 03/13/17 08:54 Dose: 1 each Naloxone HCl (Narcan) 0.1 mg IVPUSH Q5M PRN PRN Reason: Oversedation Nicotine (Habitrol) 21 mg TRDERM DAILY [facility] Last Admin: 03/13/17 08:55 Dose: 21 mg Ondansetron HCl (Zofran) 4 mg IVPUSH Q6H PRN PRN Reason: Nausea/Vomiting Oxycodone/Acetaminophen (Percocet 325-5 Mg) 1 - 2 tab PO Q4H PRN PRN Reason: Pain Last Admin: 03/13/17 08:54 Dose: 1 tab Senna (Senna) 8.6 mg PO BID PRN PRN Reason: Constipation Thiamine HCl (Vitamin B-1) 100 mg PO DAILY [facility] Last Admin: 03/13/17 08:54 Dose: 100 mg Discontinued Medications Bupivacaine HCl (Marcaine 0.25%) Confirm Administered Dose 30 ml .ROUTE .STK- MED ONE Stop: 03/11/17 07:48 Last Admin: 03/11/17 09:05 Dose: 30 ml Cefazolin Sodium (Ancef) Confirm Administered Dose 2 gm .ROUTE .STK-MED ONE Stop: 03/11/17 07:41 Cefazolin Sodium (Ancef) Confirm Administered Dose 2 gm .ROUTE .STK-MED ONE Stop: 03/11/17 14:12 Chlordiazepoxide HCl (Librium) [address] Chlordiazepoxide HCl (Librium) [address] Last Admin: 03/11/17 22:03 Dose: 10 mg Chlordiazepoxide HCl (Librium) 50 mg PO ONETIME ONE Stop: 03/12/17 07:32 Last Admin: 03/12/17 08:09 Dose: 50 mg Dexamethasone (Dexamethasone) Confirm Administered Dose 4 mg .ROUTE .STK-MED ONE Stop: 03/11/17 07:40 Diphenhydramine HCl (Benadryl) 25 mg IVPUSH Q6H PRN PRN Reason: Pruritis Fentanyl (Sublimaze) Confirm Administered Dose 250 mcg .ROUTE .STK-MED ONE Stop: 03/11/17 07:39 Fentanyl (Sublimaze) Confirm Administered Dose 250 mcg .ROUTE .STK-MED ONE Stop: 03/11/17 10:32 Fentanyl (Sublimaze) Confirm Administered Dose 100 mcg .ROUTE .STK-MED ONE Stop: 03/11/17 14:16 Fentanyl (Sublimaze) 50 mcg IVPUSH Q5M PRN PRN Reason: Pain Hydromorphone HCl (Dilaudid) Confirm Administered Dose 1 mg .ROUTE .STK-MED ONE Stop: 03/11/17 09:57 Hydromorphone HCl (Dilaudid) Confirm Administered Dose 1 mg .ROUTE .STK-MED ONE Stop: 03/11/17 10:28 Hydromorphone HCl (Dilaudid) Confirm Administered Dose 1 mg .ROUTE .STK-MED ONE Stop: 03/11/17 13:30 Hydromorphone HCl (Dilaudid) 0.5 mg IVPUSH Q15M PRN PRN Reason: Pain (severe 7-10) Last Admin: 03/11/17 20:18 Dose: 0.5 mg Lactated Ringer's (Ringers, Lactated) 1,000 mls @ 125 mls/hr IV ASDIRECTED [facility] Lactated Ringer's (Ringers, Lactated) 1,000 mls @ 125 mls/hr IV ASDIRECTED [facility] Stop: 03/11/17 23:00 Last Admin: 03/11/17 21:33 Dose: 125 mls/hr Lidocaine HCl (Xylocaine-Mpf 1%) Confirm Administered Dose 4 mls @ as directed .ROUTE .STK-MED ONE Stop: 03/11/17 07:40 Lactated Ringer's (Ringers, Lactated) Confirm Administered Dose 1,000 mls @ as directed .ROUTE .STK-MED ONE Stop: 03/11/17 13:05 Lactated Ringer's (Ringers, Lactated) Confirm Administered Dose 1,000 mls @ as directed .ROUTE .STK-MED ONE Stop: 03/11/17 13:05 Cefazolin Sodium/Dextrose 2 gm (/ Premix) 50 mls @ 100 mls/hr IV Q8H [facility] Stop: 03/12/17 14:29 Last Admin: 03/12/17 15:00 Dose: 100 mls/hr Potassium Chloride/Sodium Chloride (Normal Saline With 20 Meq Kcl) 1,000 mls @ 100 mls/hr IV ASDIRECTED [facility] Last Admin: 03/13/17 05:10 Dose: 100 mls/hr Magnesium Sulfate 2 gm/ Premix 50 mls @ 25 mls/hr IV ONETIME ONE Stop: 03/12/17 11:59 Last Admin: 03/12/17 10:43 Dose: 25 mls/hr Lidocaine/Sodium Bicarbonate (Buffered Lidocaine 1% In Ns 8.4%) 0.25 ml IV ONETIME PRN PRN Reason: Prior to IV Start Lidocaine/Sodium Bicarbonate (Buffered Lidocaine 1% In Ns 8.4%) 0.25 ml .XX ONETIME PRN PRN Reason: Prior to IV Start Stop: 03/11/17 18:00 Last Admin: 03/11/17 07:38 Dose: 0.25 ml Lorazepam (Ativan) 2 mg IVPUSH Q6H PRN PRN Reason: Anxiety Meperidine HCl (Demerol) 12.5 mg IVPUSH ONETIME PRN PRN Reason: Shivering Midazolam HCl (Versed 1 Mg/Ml) Confirm Administered Dose 2 mg .ROUTE .STK-MED ONE Stop: 03/11/17 07:38 Ondansetron HCl (Zofran) Confirm Administered Dose 4 mg .ROUTE .STK-MED ONE Stop: 03/11/17 07:40 Ondansetron HCl (Zofran) 4 mg IVPUSH ONETIME PRN PRN Reason: Nausea/Vomiting Potassium Chloride (Klor-Con M20) [address] Stop: 03/12/17 13:01 Last Admin: 03/12/17 12:57 Dose: 40 meq Propofol (Diprivan 20 Ml) Confirm Administered Dose 200 mg .ROUTE .STK-MED ONE Stop: 03/11/17 07:38 Rocuronium Clovis (Zemuron) Confirm Administered Dose 50 mg .ROUTE .STK-MED ONE Stop: 03/11/17 07:40 Sodium Chloride (Saline Flush) 10 ml FLUSH ASDIRECTED PRN PRN Reason: Keep Vein Open Sodium Chloride (Saline Flush) 10 ml FLUSH ASDIRECTED PRN PRN Reason: Keep Vein Open Stop: 03/11/17 18:00 Consult PN Assessment/Plan Procedures: Procedures APPLY LONG ARM SPLINT (03/05/17) COMPLETE CBC AUTOMATED (03/06/17) COMPREHEN METABOLIC PANEL (03/06/17) EMERGENCY DEPT VISIT (03/05/17) -[facility] DNA AMP PROBE (03/06/17) ROUTINE VENIPUNCTURE (03/06/17) X-RAY EXAM OF ELBOW (03/05/17) (1) Alcohol abuse SNOMED Code(s): 20198758 Code(s): F10.10 - ALCOHOL ABUSE, UNCOMPLICATED Priority: Medium Current Visit: Yes (2) Tobacco abuse SNOMED Code(s): 822087421 Code(s): Z72.0 - TOBACCO USE Priority: Medium Current Visit: Yes (3) Fracture of humerus SNOMED Code(s): 45184385 Code(s): S42.309A - UNSP FRACTURE OF SHAFT OF HUMERUS, UNSP ARM, INIT Priority: High Current Visit: Yes Qualifiers: Encounter type: initial encounter Humerus Location: distal Fracture type : closed Fracture morphology: other fracture Fracture alignment: displaced Laterality: left Qualified Code(s): S42.492A - Other displaced fracture of lower end of left humerus, initial encounter for closed fracture Plan: Strongly recommend ETOH dependence/abuse be addressed; would benefit from psychiatric as well as substance abuse counseling. Tobacco cessation recommendation: [id number].
[2017-03-13] MEDS: Folic Acid 1 MG Tab PO SCH (08:54)
[2017-03-13] MEDS: chlordiazePOXIDE 25 MG Cap PO SCH (08:54)
[2017-03-13] MEDS: Multivitamins,Therapeutic Tab PO SCH (08:54)
[2017-03-13] MEDS: Aspirin 325 MG Tab.EC PO SCH (08:54)
[2017-03-13] MEDS: Thiamine 100 MG Tab PO SCH (08:54)
[2017-03-13] MEDS: Famotidine 20 MG Tab PO SCH (08:54)
[2017-03-13] MEDS: Nicotine 21 MG/24 Hr Patch TRDERM SCH (08:55)
--- NOTE | 2017-03-13 15:59 | PCM.SURGPN ---
- General Info Date of Service: 03/13/17 POD#: 2 Functional Status: Reports: Pain Controlled, Tolerating Diet, Ambulating, Urinating - Review of Systems Musculoskeletal: Reports: Other (The pt is anxious to be discharge to home.) - Patient Data Vitals - Most Recent: Last Vital Signs Temp 99.7 F 03/13/17 04:24 Pulse 120 H 03/13/17 12:20 Resp 16 03/13/17 12:20 BP 135/98 H 03/13/17 12:20 Pulse Ox 100 03/13/17 12:20 Weight - Most Recent: 143 lb 12.8 oz I&O - Last 24 Hours: Intake & Output 03/13/17 03/13/17 03/13/17 06:59 14:59 22:59 Intake Total 1287 2380 Balance 1287 2380 Lab Results Last 24 Hrs: Laboratory Results - last 24 hr 03/13/17 03/13/17 03/13/17 Range/Units 06:45 06:45 06:45 WBC 8.49 (3.98-10.04) K/mm3 RBC 2.86 L (3.98-5.22) M/mm3 Hgb 10.0 L (11.2-15.7) gm/L Hct 30.5 L (34.1-44.9) % MCV 106.6 H (79.4-94.8) fl MCH 35.0 H (25.6-32.2) pg MCHC 32.8 (32.2-35.5) g/dl RDW Std Deviation 46.5 H (36.4-46.3) fL Plt Count 189 (182-369) K/mm3 MPV 9.3 L (9.4-12.3) fl Neut % (Auto) 77.6 H (34.0-71.1) % Lymph % (Auto) 13.0 L (19.3-51.7) % [place] % (Auto) 8.5 (4.7-12.5) % Eos % (Auto) 0.6 L (0.7-5.8) Baso % (Auto) 0.1 (0.1-1.2) % Neut # (Auto) 6.59 H (1.56-6.13) K/mm3 Lymph # (Auto) 1.10 L (1.18-3.74) K/mm3 [place] # (Auto) 0.72 H (0.24-0.36) K/mm3 Eos # (Auto) 0.05 (0.04-0.36) K/mm3 Baso # (Auto) 0.01 (0.01-0.08) K/mm3 Manual Slide Review Abnormal smear Sodium 138 (136-145) mEq/L Potassium 4.7 (3.5-5.1) mEq/L Chloride 106 (98-107) mEq/L Carbon Dioxide 21 (21-32) mEq/L Anion Gap 15.7 H (5-15) BUN 3 L (7-18) mg/dL Creatinine 0.6 (0.55-1.02) mg/dL Est Cr Clr Drug Dosing 101.53 mL/min Estimated GFR (MDRD) > 60 (>60) mL/min BUN/Creatinine Ratio 5.0 L (14-18) Glucose 108 H (74-106) mg/dL Calcium 8.1 L (8.5-10.1) mg/dL Magnesium 1.9 (1.8-2.4) mg/dl Total Bilirubin 0.8 (0.2-1.0) mg/dL Direct Bilirubin 0.20 (0.0-0.2) mg/dl Indirect Bilirubin 0.60 AST 46 H (15-37) U/L ALT 52 (14-59) U/L Alkaline Phosphatase 105 (46-116) U/L Total Protein 6.5 (6.4-8.2) g/dl Albumin 2.8 L (3.4-5.0) g/dl Globulin 3.7 gm/dL Albumin/Globulin Ratio 0.8 L (1-2) Med Orders - Current: Current Medications Aspirin (Ecotrin) 325 mg PO DAILY [facility] Last Admin: 03/13/17 08:54 Dose: 325 mg Bisacodyl (Dulcolax) 5 mg PO DAILY PRN PRN Reason: Constipation Chlordiazepoxide HCl (Librium) 25 mg PO TID [facility] Last Admin: 03/13/17 08:54 Dose: 25 mg Diphenhydramine HCl (Benadryl) 25 mg IVPUSH Q4H PRN PRN Reason: Nausea Last Admin: 03/12/17 11:59 Dose: 25 mg Docusate Sodium (Colace) 100 mg PO BID PRN PRN Reason: Constipation Famotidine (Pepcid) 20 mg PO Q12H [facility] Last Admin: 03/13/17 08:54 Dose: 20 mg Folic Acid (Folic Acid) 1 mg PO DAILY [facility] Last Admin: 03/13/17 08:54 Dose: 1 mg Haloperidol Lactate (Haldol) 1 mg IVPUSH Q8H PRN PRN Reason: restlessness Lorazepam (Ativan) 1 mg IVPUSH Q6H PRN PRN Reason: Anxiety Last Admin: 03/13/17 10:22 Dose: 1 mg Magnesium Hydroxide (Milk Of Magnesia) 30 ml PO BID PRN PRN Reason: Constipation Morphine Sulfate (Morphine) 2 mg IVPUSH Q2H PRN PRN Reason: Breakthrough Pain Last Admin: 03/12/17 06:43 Dose: 2 mg Multivitamins (Thera) 1 each PO DAILY [facility] Last Admin: 03/13/17 08:54 Dose: 1 each Naloxone HCl (Narcan) 0.1 mg IVPUSH Q5M PRN PRN Reason: Oversedation Nicotine (Habitrol) 21 mg TRDERM DAILY [facility] Last Admin: 03/13/17 08:55 Dose: 21 mg Ondansetron HCl (Zofran) 4 mg IVPUSH Q6H PRN PRN Reason: Nausea/Vomiting Oxycodone/Acetaminophen (Percocet 325-5 Mg) 1 - 2 tab PO Q4H PRN PRN Reason: Pain Last Admin: 03/13/17 08:54 Dose: 1 tab Senna (Senna) 8.6 mg PO BID PRN PRN Reason: Constipation Thiamine HCl (Vitamin B-1) 100 mg PO DAILY [facility] Last Admin: 03/13/17 08:54 Dose: 100 mg Discontinued Medications Bupivacaine HCl (Marcaine 0.25%) Confirm Administered Dose 30 ml .ROUTE .STK- MED ONE Stop: 03/11/17 07:48 Last Admin: 03/11/17 09:05 Dose: 30 ml Cefazolin Sodium (Ancef) Confirm Administered Dose 2 gm .ROUTE .STK-MED ONE Stop: 03/11/17 07:41 Cefazolin Sodium (Ancef) Confirm Administered Dose 2 gm .ROUTE .STK-MED ONE Stop: 03/11/17 14:12 Chlordiazepoxide HCl (Librium) 25 mg PO TID [facility] Chlordiazepoxide HCl (Librium) 10 mg PO TID [facility] Last Admin: 03/11/17 22:03 Dose: 10 mg Chlordiazepoxide HCl (Librium) 50 mg PO ONETIME ONE Stop: 03/12/17 07:32 Last Admin: 03/12/17 08:09 Dose: 50 mg Dexamethasone (Dexamethasone) Confirm Administered Dose 4 mg .ROUTE .STK-MED ONE Stop: 03/11/17 07:40 Diphenhydramine HCl (Benadryl) 25 mg IVPUSH Q6H PRN PRN Reason: Pruritis Fentanyl (Sublimaze) Confirm Administered Dose 250 mcg .ROUTE .STK-MED ONE Stop: 03/11/17 07:39 Fentanyl (Sublimaze) Confirm Administered Dose 250 mcg .ROUTE .STK-MED ONE Stop: 03/11/17 10:32 Fentanyl (Sublimaze) Confirm Administered Dose 100 mcg .ROUTE .STK-MED ONE Stop: 03/11/17 14:16 Fentanyl (Sublimaze) 50 mcg IVPUSH Q5M PRN PRN Reason: Pain Hydromorphone HCl (Dilaudid) Confirm Administered Dose 1 mg .ROUTE .STK-MED ONE Stop: 03/11/17 09:57 Hydromorphone HCl (Dilaudid) Confirm Administered Dose 1 mg .ROUTE .STK-MED ONE Stop: 03/11/17 10:28 Hydromorphone HCl (Dilaudid) Confirm Administered Dose 1 mg .ROUTE .STK-MED ONE Stop: 03/11/17 13:30 Hydromorphone HCl (Dilaudid) 0.5 mg IVPUSH Q15M PRN PRN Reason: Pain (severe 7-10) Last Admin: 03/11/17 20:18 Dose: 0.5 mg Lactated Ringer's (Ringers, Lactated) 1,000 mls @ 125 mls/hr IV ASDIRECTED [facility] Lactated Ringer's (Ringers, Lactated) 1,000 mls @ 125 mls/hr IV ASDIRECTED [facility] Stop: 03/11/17 23:00 Last Admin: 03/11/17 21:33 Dose: 125 mls/hr Lidocaine HCl (Xylocaine-Mpf 1%) Confirm Administered Dose 4 mls @ as directed .ROUTE .STK-MED ONE Stop: 03/11/17 07:40 Lactated Ringer's (Ringers, Lactated) Confirm Administered Dose 1,000 mls @ as directed .ROUTE .STK-MED ONE Stop: 03/11/17 13:05 Lactated Ringer's (Ringers, Lactated) Confirm Administered Dose 1,000 mls @ as directed .ROUTE .STK-MED ONE Stop: 03/11/17 13:05 Cefazolin Sodium/Dextrose 2 gm (/ Premix) 50 mls @ 100 mls/hr IV Q8H [facility] Stop: 03/12/17 14:29 Last Admin: 03/12/17 15:00 Dose: 100 mls/hr Potassium Chloride/Sodium Chloride (Normal Saline With 20 Meq Kcl) 1,000 mls @ 100 mls/hr IV ASDIRECTED [facility] Last Admin: 03/13/17 05:10 Dose: 100 mls/hr Magnesium Sulfate 2 gm/ Premix 50 mls @ 25 mls/hr IV ONETIME ONE Stop: 03/12/17 11:59 Last Admin: 03/12/17 10:43 Dose: 25 mls/hr Lidocaine/Sodium Bicarbonate (Buffered Lidocaine 1% In Ns 8.4%) 0.25 ml IV ONETIME PRN PRN Reason: Prior to IV Start Lidocaine/Sodium Bicarbonate (Buffered Lidocaine 1% In Ns 8.4%) 0.25 ml .XX ONETIME PRN PRN Reason: Prior to IV Start Stop: 03/11/17 18:00 Last Admin: 03/11/17 07:38 Dose: 0.25 ml Lorazepam (Ativan) 2 mg IVPUSH Q6H PRN PRN Reason: Anxiety Meperidine HCl (Demerol) 12.5 mg IVPUSH ONETIME PRN PRN Reason: Shivering Midazolam HCl (Versed 1 Mg/Ml) Confirm Administered Dose 2 mg .ROUTE .STK-MED ONE Stop: 03/11/17 07:38 Ondansetron HCl (Zofran) Confirm Administered Dose 4 mg .ROUTE .STK-MED ONE Stop: 03/11/17 07:40 Ondansetron HCl (Zofran) 4 mg IVPUSH ONETIME PRN PRN Reason: Nausea/Vomiting Potassium Chloride (Klor-Con M20) 40 meq PO Q4H [facility] Stop: 03/12/17 13:01 Last Admin: 03/12/17 12:57 Dose: 40 meq Propofol (Diprivan 20 Ml) Confirm Administered Dose 200 mg .ROUTE .STK-MED ONE Stop: 03/11/17 07:38 Rocuronium [place] (Zemuron) Confirm Administered Dose 50 mg .ROUTE .STK-MED ONE Stop: 03/11/17 07:40 Sodium Chloride (Saline Flush) 10 ml FLUSH ASDIRECTED PRN PRN Reason: Keep Vein Open Sodium Chloride (Saline Flush) 10 ml FLUSH ASDIRECTED PRN PRN Reason: Keep Vein Open Stop: 03/11/17 18:00 - Exam Wound/Incisions: Dressing Dry and Intact General: Alert, Cooperative, No Acute Distress Lungs: Normal Respiratory Effort Extremities: Other (The pt was able to flex and extend all digits of left hand. NVS intact for LUE. Eccymosis and swelling noted at left fingers.) - Problem List Review Problem List Initiated/Reviewed/Updated: Yes - My Orders Last 24 Hours: Active Orders 24 hr Category Date Time Status CIWAA Assessment [RC] Q4HR Care 03/12/17 15:05 Active Ready for Discharge [RC] PER UNIT ROUTINE Care 03/13/17 11:16 Active BASIC METABOLIC PANEL,BMP [CHEM] DAILY Lab 03/14/17 06:30 Ordered BASIC METABOLIC PANEL,BMP [CHEM] DAILY Lab 03/15/17 06:30 Ordered BASIC METABOLIC PANEL,BMP [CHEM] DAILY Lab 03/16/17 06:30 Ordered CBC WITH AUTO DIFF [HEME] DAILY Lab 03/14/17 06:30 Ordered CBC WITH AUTO DIFF [HEME] DAILY Lab 03/15/17 06:30 Ordered CBC WITH AUTO DIFF [HEME] DAILY Lab 03/16/17 06:30 Ordered MAGNESIUM [CHEM] DAILY Lab 03/14/17 06:30 Ordered MAGNESIUM [CHEM] DAILY Lab 03/15/17 06:30 Ordered MAGNESIUM [CHEM] DAILY Lab 03/16/17 06:30 Ordered Folic Acid Med 03/12/17 15:15 Active 1 mg PO DAILY Multivitamins,Therapeutic [Thera] Med 03/12/17 15:15 Active 1 each PO DAILY Thiamine [Vitamin B-1] Med 03/12/17 15:15 Active 100 mg PO DAILY Medication Orders Aspirin (Ecotrin) 325 mg PO DAILY [facility] Last Admin: 03/13/17 08:54 Dose: 325 mg Admin: 03/12/17 08:08 Dose: 325 mg Bisacodyl (Dulcolax) 5 mg PO DAILY PRN PRN Reason: Constipation Chlordiazepoxide HCl (Librium) 25 mg PO TID [facility] Last Admin: 03/13/17 08:54 Dose: 25 mg Admin: 03/12/17 20:05 Dose: 25 mg Admin: 03/12/17 15:00 Dose: 25 mg Admin: 03/12/17 12:57 Dose: 25 mg Diphenhydramine HCl (Benadryl) 25 mg IVPUSH Q4H PRN PRN Reason: Nausea Last Admin: 03/12/17 11:59 Dose: 25 mg Docusate Sodium (Colace) 100 mg PO BID PRN PRN Reason: Constipation Famotidine (Pepcid) 20 mg PO Q12H [facility] Last Admin: 03/13/17 08:54 Dose: 20 mg Admin: 03/12/17 20:05 Dose: 20 mg Admin: 03/12/17 08:09 Dose: 20 mg Admin: 03/11/17 20:00 Dose: 20 mg Folic Acid (Folic Acid) 1 mg PO DAILY [facility] Last Admin: 03/13/17 08:54 Dose: 1 mg Admin: 03/12/17 16:09 Dose: 1 mg Haloperidol Lactate (Haldol) 1 mg IVPUSH Q8H PRN PRN Reason: restlessness Lorazepam (Ativan) 1 mg IVPUSH Q6H PRN PRN Reason: Anxiety Last Admin: 03/13/17 10:22 Dose: 1 mg Magnesium Hydroxide (Milk Of Magnesia) 30 ml PO BID PRN PRN Reason: Constipation Morphine Sulfate (Morphine) 2 mg IVPUSH Q2H PRN PRN Reason: Breakthrough Pain Last Admin: 03/12/17 06:43 Dose: 2 mg Admin: 03/12/17 00:12 Dose: 2 mg Multivitamins (Thera) 1 each PO DAILY [facility] Last Admin: 03/13/17 08:54 Dose: 1 each Admin: 03/12/17 16:09 Dose: 1 each Naloxone HCl (Narcan) 0.1 mg IVPUSH Q5M PRN PRN Reason: Oversedation Nicotine (Habitrol) 21 mg TRDERM DAILY [facility] Last Admin: 03/13/17 08:55 Dose: 21 mg Admin: 03/12/17 08:17 Dose: 21 mg Admin: 03/11/17 20:00 Dose: 21 mg Ondansetron HCl (Zofran) 4 mg IVPUSH Q6H PRN PRN Reason: Nausea/Vomiting Oxycodone/Acetaminophen (Percocet 325-5 Mg) 1 - 2 tab PO Q4H PRN PRN Reason: Pain Last Admin: 03/13/17 08:54 Dose: 1 tab Admin: 03/13/17 05:10 Dose: 2 tab Admin: 03/12/17 20:05 Dose: 2 tab Admin: 03/12/17 16:09 Dose: 2 tab Admin: 03/12/17 11:59 Dose: 2 tab Admin: 03/12/17 08:10 Dose: 2 tab Admin: 03/12/17 04:06 Dose: 2 tab Admin: 03/12/17 00:25 Dose: 2 tab Admin: 03/11/17 18:40 Dose: 2 tab Senna (Senna) 8.6 mg PO BID PRN PRN Reason: Constipation Thiamine HCl (Vitamin B-1) [address] Last Admin: 03/13/17 08:54 Dose: 100 mg Admin: 03/12/17 16:09 Dose: 100 mg - Assessment Assessment (Free Text/Narrative):: POD#2 - ORIF of intra-articular distal humerus fracture on the left - Plan Plan (Free Text/Narrative):: 1. Discharge to home today. The pt has been cleared for d/c from Hospitalist service. 2. Percocet for pain management. Precautions with use pain medication discussed. 3. f/u at ortho Clinic The pt's case was discussed with Dr. Felton today.
--- NOTE | 2017-03-13 16:04 | PCM.DCSUM1 ---
Discharge Summary - Hospital Course Brief History: Liss is a 36 yo female who underwent ORIF of left distal humerus fracture with Dr. Felton on 03-11-2017. The procedure was completed under general anesthesia. The pt tolerated the procedure well and was admitted to the Medical-Surgical Unit for pain control and monitoring. Medical management was provided by the Hospitalist service. The pt was monitored and CIWA protocol was implemented. On POD#1, 325mg ASA daily was initiated for VTE prophylaxis. SCDs and TEDs were also ordered. On POD#2, the pt was deemed appropriate to discharge to home with family. The pt will remain in splint and will follow-up with the Clinic. - Discharge Data Discharge Date: 03/13/17 Discharge Disposition: Home, Self-Care 01 Condition: Good - Patient Summary/Data Consults: Consultations 03/11/17 16:21 Consult to Case Management [CONS] Routine Consult to Physician [CONS] Routine - Patient Instructions Diet: Usual Diet as Tolerated, Drink 8-10+ Glasses/Day, No Alcoholic Beverages Activity: Apply Ice, As Tolerated, Elevate Extremity Activity, Other: No use of the surgical arm. Driving: Do Not Drive Showering/Bathing: May Shower Showering/Bathing, Other: Keep the splint and bandages covered with showering. Wound/Incision Care: Keep Operative Site/Wound Site Clean and Dry, Do NOT Change Dressing Notify Provider of: Fever, Increased Pain, Swelling and Redness, Drainage, Nausea and/or Vomiting Other/Special Instructions: Please keep the splint and bandages in place until follow-up. Please use the ice machine often. Use the pain medication as needed. Do not use alcohol or other medications that cause drowsiness while using the prescription pain medication. Wean from use of the pain medication as soon as able. The medication may cause drowsiness and/or constipation. You could use a stool softener like docusate sodium or Colace 100mg twice daily and/ or a laxative like Miralax daily for constipation. Contact your primary care provider for other instructions if you are constipated. Contact the Clinic with other questions - [phone]. - Discharge Plan Prescriptions/Med Rec: Aspirin [Ecotrin] 325 mg PO DAILY #40 tab.ec Folic Acid 1 mg PO DAILY #30 tablet Hydrocodone/Acetaminophen [[place] 5-325 Tablet] 1 - 2 each PO Q6H PRN #40 tablet PRN Reason: Pain Nicotine [Habitrol] 21 mg TRDERM DAILY #30 patch Thiamine [Vitamin B-1] 100 mg PO DAILY #30 tablet Home Medications: Home Meds Hydrocodone/Acetaminophen [[place] 5-325 Tablet] 1 - 2 each PO Q6H PRN #40 tablet 03/11/17 [Rx] Aspirin [Ecotrin] 325 mg PO DAILY #40 tab.ec 03/13/17 [Rx] Docusate Sodium [Colace] 100 mg PO BID PRN cap 03/13/17 [Rx] Famotidine [Pepcid] 20 mg PO Q12H tablet 03/13/17 [Rx] Folic Acid 1 mg PO DAILY #30 tablet 03/13/17 [Rx] Multivitamins,Therapeutic [Thera] 1 each PO DAILY tablet 03/13/17 [Rx] Nicotine [Habitrol] 21 mg TRDERM DAILY #30 patch 03/13/17 [Rx] Thiamine [Vitamin B-1] 100 mg PO DAILY #30 tablet 03/13/17 [Rx] Patient Handouts: Smoking Cessation, Tips for Success, [id number], Alcohol Use Disorder, Elbow Fracture Treated With ORIF, Elbow Fracture Treated With ORIF , Care After Referrals: Alisia Tucker PA-C [Physician [employer]] - 03/25/17 2:30 pm - Patient Data Vitals - Most Recent: Last Vital Signs Temp 99.7 F 03/13/17 04:24 Pulse 120 H 03/13/17 12:20 Resp 16 03/13/17 12:20 BP 135/98 H 03/13/17 12:20 Pulse Ox 100 03/13/17 12:20 Weight - Most Recent: 143 lb 12.8 oz I&O - Last 24 hours: Intake & Output 03/13/17 03/13/17 03/13/17 06:59 14:59 22:59 Intake Total 1287 2380 Balance 1287 2380 Lab Results - Last 24 hrs: Laboratory Results - last 24 hr 03/13/17 03/13/17 03/13/17 Range/Units 06:45 06:45 06:45 WBC 8.49 (3.98-10.04) K/mm3 RBC 2.86 L (3.98-5.22) M/mm3 Hgb 10.0 L (11.2-15.7) gm/L Hct 30.5 L (34.1-44.9) % MCV 106.6 H (79.4-94.8) fl MCH 35.0 H (25.6-32.2) pg MCHC 32.8 (32.2-35.5) g/dl RDW Std Deviation 46.5 H (36.4-46.3) fL Plt Count 189 (182-369) K/mm3 MPV 9.3 L (9.4-12.3) fl Neut % (Auto) 77.6 H (34.0-71.1) % Lymph % (Auto) 13.0 L (19.3-51.7) % [place] % (Auto) 8.5 (4.7-12.5) % Eos % (Auto) 0.6 L (0.7-5.8) Baso % (Auto) 0.1 (0.1-1.2) % Neut # (Auto) 6.59 H (1.56-6.13) K/mm3 Lymph # (Auto) 1.10 L (1.18-3.74) K/mm3 [place] # (Auto) 0.72 H (0.24-0.36) K/mm3 Eos # (Auto) 0.05 (0.04-0.36) K/mm3 Baso # (Auto) 0.01 (0.01-0.08) K/mm3 Manual Slide Review Abnormal smear Sodium 138 (136-145) mEq/L Potassium 4.7 (3.5-5.1) mEq/L Chloride 106 (98-107) mEq/L Carbon Dioxide 21 (21-32) mEq/L Anion Gap 15.7 H (5-15) BUN 3 L (7-18) mg/dL Creatinine 0.6 (0.55-1.02) mg/dL Est Cr Clr Drug Dosing 101.53 mL/min Estimated GFR (MDRD) > 60 (>60) mL/min BUN/Creatinine Ratio 5.0 L (14-18) Glucose 108 H (74-106) mg/dL Calcium 8.1 L (8.5-10.1) mg/dL Magnesium 1.9 (1.8-2.4) mg/dl Total Bilirubin 0.8 (0.2-1.0) mg/dL Direct Bilirubin 0.20 (0.0-0.2) mg/dl Indirect Bilirubin 0.60 AST 46 H (15-37) U/L ALT 52 (14-59) U/L Alkaline Phosphatase 105 (46-116) U/L Total Protein 6.5 (6.4-8.2) g/dl Albumin 2.8 L (3.4-5.0) g/dl Globulin 3.7 gm/dL Albumin/Globulin Ratio 0.8 L (1-2) Med Orders - Current: Current Medications Aspirin (Ecotrin) 325 mg PO DAILY [facility] Last Admin: 03/13/17 08:54 Dose: 325 mg Bisacodyl (Dulcolax) 5 mg PO DAILY PRN PRN Reason: Constipation Chlordiazepoxide HCl (Librium) 25 mg PO TID [facility] Last Admin: 03/13/17 08:54 Dose: 25 mg Diphenhydramine HCl (Benadryl) 25 mg IVPUSH Q4H PRN PRN Reason: Nausea Last Admin: 03/12/17 11:59 Dose: 25 mg Docusate Sodium (Colace) 100 mg PO BID PRN PRN Reason: Constipation Famotidine (Pepcid) 20 mg PO Q12H [facility] Last Admin: 03/13/17 08:54 Dose: 20 mg Folic Acid (Folic Acid) 1 mg PO DAILY [facility] Last Admin: 03/13/17 08:54 Dose: 1 mg Haloperidol Lactate (Haldol) 1 mg IVPUSH Q8H PRN PRN Reason: restlessness Lorazepam (Ativan) 1 mg IVPUSH Q6H PRN PRN Reason: Anxiety Last Admin: 03/13/17 10:22 Dose: 1 mg Magnesium Hydroxide (Milk Of Magnesia) 30 ml PO BID PRN PRN Reason: Constipation Morphine Sulfate (Morphine) 2 mg IVPUSH Q2H PRN PRN Reason: Breakthrough Pain Last Admin: 03/12/17 06:43 Dose: 2 mg Multivitamins (Thera) 1 each PO DAILY [facility] Last Admin: 03/13/17 08:54 Dose: 1 each Naloxone HCl (Narcan) 0.1 mg IVPUSH Q5M PRN PRN Reason: Oversedation Nicotine (Habitrol) 21 mg TRDERM DAILY [facility] Last Admin: 03/13/17 08:55 Dose: 21 mg Ondansetron HCl (Zofran) 4 mg IVPUSH Q6H PRN PRN Reason: Nausea/Vomiting Oxycodone/Acetaminophen (Percocet 325-5 Mg) 1 - 2 tab PO Q4H PRN PRN Reason: Pain Last Admin: 03/13/17 08:54 Dose: 1 tab Senna (Senna) 8.6 mg PO BID PRN PRN Reason: Constipation Thiamine HCl (Vitamin B-1) 100 mg PO DAILY [facility] Last Admin: 03/13/17 08:54 Dose: 100 mg Discontinued Medications Bupivacaine HCl (Marcaine 0.25%) Confirm Administered Dose 30 ml .ROUTE .STK- MED ONE Stop: 03/11/17 07:48 Last Admin: 03/11/17 09:05 Dose: 30 ml Cefazolin Sodium (Ancef) Confirm Administered Dose 2 gm .ROUTE .STK-MED ONE Stop: 03/11/17 07:41 Cefazolin Sodium (Ancef) Confirm Administered Dose 2 gm .ROUTE .STK-MED ONE Stop: 03/11/17 14:12 Chlordiazepoxide HCl (Librium) [address] Chlordiazepoxide HCl (Librium) 10 mg PO TID [facility] Last Admin: 03/11/17 22:03 Dose: 10 mg Chlordiazepoxide HCl (Librium) 50 mg PO ONETIME ONE Stop: 03/12/17 07:32 Last Admin: 03/12/17 08:09 Dose: 50 mg Dexamethasone (Dexamethasone) Confirm Administered Dose 4 mg .ROUTE .STK-MED ONE Stop: 03/11/17 07:40 Diphenhydramine HCl (Benadryl) 25 mg IVPUSH Q6H PRN PRN Reason: Pruritis Fentanyl (Sublimaze) Confirm Administered Dose 250 mcg .ROUTE .STK-MED ONE Stop: 03/11/17 07:39 Fentanyl (Sublimaze) Confirm Administered Dose 250 mcg .ROUTE .STK-MED ONE Stop: 03/11/17 10:32 Fentanyl (Sublimaze) Confirm Administered Dose 100 mcg .ROUTE .STK-MED ONE Stop: 03/11/17 14:16 Fentanyl (Sublimaze) 50 mcg IVPUSH Q5M PRN PRN Reason: Pain Hydromorphone HCl (Dilaudid) Confirm Administered Dose 1 mg .ROUTE .STK-MED ONE Stop: 03/11/17 09:57 Hydromorphone HCl (Dilaudid) Confirm Administered Dose 1 mg .ROUTE .STK-MED ONE Stop: 03/11/17 10:28 Hydromorphone HCl (Dilaudid) Confirm Administered Dose 1 mg .ROUTE .STK-MED ONE Stop: 03/11/17 13:30 Hydromorphone HCl (Dilaudid) 0.5 mg IVPUSH Q15M PRN PRN Reason: Pain (severe 7-10) Last Admin: 03/11/17 20:18 Dose: 0.5 mg Lactated Ringer's (Ringers, Lactated) 1,000 mls @ 125 mls/hr IV ASDIRECTED [facility] Lactated Ringer's (Ringers, Lactated) 1,000 mls @ 125 mls/hr IV ASDIRECTED [facility] Stop: 03/11/17 23:00 Last Admin: 03/11/17 21:33 Dose: 125 mls/hr Lidocaine HCl (Xylocaine-Mpf 1%) Confirm Administered Dose 4 mls @ as directed .ROUTE .STK-MED ONE Stop: 03/11/17 07:40 Lactated Ringer's (Ringers, Lactated) Confirm Administered Dose 1,000 mls @ as directed .ROUTE .STK-MED ONE Stop: 03/11/17 13:05 Lactated Ringer's (Ringers, Lactated) Confirm Administered Dose 1,000 mls @ as directed .ROUTE .K-MED ONE Stop: 03/11/17 13:05 Cefazolin Sodium/Dextrose 2 gm (/ Premix) 50 mls @ 100 mls/hr IV Q8H [facility] Stop: 03/12/17 14:29 Last Admin: 03/12/17 15:00 Dose: 100 mls/hr Potassium Chloride/Sodium Chloride (Normal Saline With 20 Meq Kcl) 1,000 mls @ 100 mls/hr IV ASDIRECTED [facility] Last Admin: 03/13/17 05:10 Dose: 100 mls/hr Magnesium Sulfate 2 gm/ Premix 50 mls @ 25 mls/hr IV ONETIME ONE Stop: 03/12/17 11:59 Last Admin: 03/12/17 10:43 Dose: 25 mls/hr Lidocaine/Sodium Bicarbonate (Buffered Lidocaine 1% In Ns 8.4%) 0.25 ml IV ONETIME PRN PRN Reason: Prior to IV Start Lidocaine/Sodium Bicarbonate (Buffered Lidocaine 1% In Ns 8.4%) 0.25 ml .XX ONETIME PRN PRN Reason: Prior to IV Start Stop: 03/11/17 18:00 Last Admin: 03/11/17 07:38 Dose: 0.25 ml Lorazepam (Ativan) 2 mg IVPUSH Q6H PRN PRN Reason: Anxiety Meperidine HCl (Demerol) 12.5 mg IVPUSH ONETIME PRN PRN Reason: Shivering Midazolam HCl (Versed 1 Mg/Ml) Confirm Administered Dose 2 mg .ROUTE .STK-MED ONE Stop: 03/11/17 07:38 Ondansetron HCl (Zofran) Confirm Administered Dose 4 mg .ROUTE .STK-MED ONE Stop: 03/11/17 07:40 Ondansetron HCl (Zofran) 4 mg IVPUSH ONETIME PRN PRN Reason: Nausea/Vomiting Potassium Chloride (Klor-Con M20) [address] Stop: 03/12/17 13:01 Last Admin: 03/12/17 12:57 Dose: 40 meq Propofol (Diprivan 20 Ml) Confirm Administered Dose 200 mg .ROUTE .STK-MED ONE Stop: 03/11/17 07:38 Rocuronium [place] (Zemuron) Confirm Administered Dose 50 mg .ROUTE .STK-MED ONE Stop: 03/11/17 07:40 Sodium Chloride (Saline Flush) 10 ml FLUSH ASDIRECTED PRN PRN Reason: Keep Vein Open Sodium Chloride (Saline Flush) 10 ml FLUSH ASDIRECTED PRN PRN Reason: Keep Vein Open Stop: 03/11/17 18:00 *Q Meaningful Use (DIS) - VTE *Q VTE Criteria *Q: - Stroke *Q Stroke Criteria *Q: - AMI *Q AMI Criteria *Q:
--- NOTE | 2017-03-18 10:25 | PCM.OPNOTE ---
- General Post-Op/Procedure Note Date of Surgery/Procedure: 03/11/17 Operative Procedure(s): open reduction internal fixation of comminuted intra- articular left distal humerus fracture Pre Op Diagnosis: comminuted intra-articular left distal humerus fracture Post-Op Diagnosis: Same Anesthesia Technique: General ET Tube, Local Primary Surgeon: Elder Felton Anesthesia Provider: oRbby Adler Insurance Account Executive: Alisia Tucker EBL in mLs: 100 Complications: None Condition: Good
--- NOTE | 2017-03-18 12:41 | OR ---
DATE OF OPERATION: 03/11/2017 SURGEON: Elder Felton MD OPERATION PERFORMED: Open reduction and internal fixation of comminuted intraarticular left distal humerus fracture. PREOPERATIVE DIAGNOSIS: Comminuted intraarticular left distal humerus fracture. POSTOPERATIVE DIAGNOSIS: Comminuted intraarticular left distal humerus fracture. ANESTHESIA: Endotracheal intubation with local. ANESTHESIA PROVIDER: Robby Adler. CLOAK ROOM ATTENDANT: Alisia Tucker PA-C. ESTIMATED BLOOD LOSS: 100 mL. COMPLICATIONS: None. CONDITION: Stable. DESCRIPTION OF PROCEDURE: The patient was identified in the preop holding area. Proper site was marked and identified by the surgeon. The patient was taken back to the operating theater where after adequate anesthesia, the patient's left upper extremity was sterilely prepped and draped in the usual sterile fashion. OR time-out was performed. The patient received 2 g IV Ancef. At this time, the patient was noted to have lacking extension even with fracture and the patient had told us that it had been 2 weeks at least since the fracture. At this time, a curvilinear incision was made, centered over the olecranon and the distal humerus. This was taken down to the triceps fascia, which was incised. At this time, the triceps and forearm fascia were taken off the olecranon for the olecranon osteotomy. Before the olecranon osteotomy was made, the ulnar nerve was identified and ulnar nerve decompression was done all the way proximally and distally, and vessel loops were placed around it to retract it during the case. At this time, the olecranon osteotomy to apex distal was then done under C-arm fluoroscopy with microsagittal saw and use of an osteotome at the articular margin. At this time, the distal humerus was exposed. There was noted to be significant comminution with metaphyseal impaction of the distal metaphyseal region. There was a good cortical read noted of the articular surface with just a small piece on the anterior portion missing. At this time, fracture hematoma and nonviable pieces were debrided and irrigated out of the wound. Attention was turned distally 1st. At this time with use of the K-wires, the articular surface was reduced and two 3.5 cannulated screws were then placed from medial to lateral across the distal articular surface for provisional fixation. Once this was completed and found to have good reduction of the articular surface, the articular surfaces and metaphyseal region were then reduced to the other humeral shaft piece with use of K-wires. At this time, it was noted that the patient had significantly soft osteoporotic type bone probably due to her drinking history and at this time, the K-wires were not provisionally hold it all that well. Once we did it, we were able to hold reduction. A medial Jaci distal locking plate was then placed and provisional fixation was done with both distal locking screws and a cortical screw. At this time, a posterolateral plate was also placed. The patient was noted to have significant comminution of the posterolateral portion of this fracture with almost no purchase in the posterolateral plate, but we were able to get a provisional fixation. At this time, the patient's elbow was brought through a range of motion. The patient was noted to be lacking roughly 25 degrees to 20 degrees of extension when bringing through range of motion. At this time, all the articular screws as well as plates were taken off and the patient's elbow again was brought through range of motion and again even without any fixation whatsoever and just letting the fracture pieces hanged there, the patient still was lacking 25 degrees of extension. At this time, I did do a capsular release anteriorly on the front of the humerus. It was very difficult to do on the anterior aspect of the ulna though, but we were able to do this on the anterior humerus. At this time, we again placed the screws across the articular margin and placed the medial plate as well as the posterolateral plate under direct visual fluoroscopy. We did an AP and lateral making sure there was good reconstruction of the anterior humeral line to the capitellum as well as the articular margin on the AP and lateral views. It was found to be reduced. At this time, though while bringing it through range of motion the posterolateral plate did pull out of the distal aspect of the lateral side. At this time, secondary to the patient's severe osteoporotic bone, I did switch to a straight lateral plate. This was then applied with distal locking screws and proximal locking and nonlocking screws to the plate. Again, it showed good reduction. Even after this reduction though, the patient was still lacking roughly 15 to 20 degrees of extension to the elbow, but we had good articular read for reduction of the articular surface with no older compression or loss of bone to the posterior portion that would show why this was happening. At this time, though the patient had severe bone loss in the metaphyseal region just from the fracture as well as poor osteoporotic bone, so we left the reduction as is. At this time, adequate saline was irrigated through the wound. We had placed a guide pin and drilled for 6.5 cannulated screw to fix the olecranon osteotomy. While placing the 6.5 cannulated screw, a small fracture did happen in the olecranon, so decided at this time we use a Jaci olecranon locking plate. This was then placed in the compression technique and had good reduction of the articular surface as well as the small fracture in the olecranon while this was happening. Locking screws were placed both proximally and distally, and it was found to have adequate fixation with no penetration of the joint. Again, elbow was brought through range of motion and found to be lacking 15 to 20 degrees of extension. She had full pronation and supination as well as flexion with no block to motion at any of those ranges of motion. At this time, the patient had 0 Vicryl placed in the triceps fascia, 2-0 Vicryl was placed subcutaneously, and altaf were used for the skin. The patient was placed in a posterior splint and sent to PACU in stable condition. MIS /[id number]
== END 2017-03-13 13:00 | disposition home or self-care (01) | DRG 494 ==
LOC: JD.SDS 06:29 → JD.MS 16:21
PROVIDERS: ADMIT Orthopaedic Surgery; ATTEND Orthopaedic Surgery
PROC: 0PSG04Z Reposition Left Humeral Shaft with Internal Fixation Device, Open Approach (ICD-10-PCS; principal; 2017-03-11)
DX: S42.492A Other displaced fracture of lower end of left humerus, initial encounter for closed fracture (principal); W19.XXXA Unspecified fall, initial encounter
CPT/HCPCS: 01740; 36415; 76000; 76000-26; 80048; 80053; 80076; 81025; 83735; 85025; 85027; 85610; 85730; A9270-GY; C1713; C1776; G0480; J0690; J1100; J1170; J1200; J2060; J2250; J2270; J2405; J2704; J3010; J3475; J3480; J3490; J7120

== ENCOUNTER 2023-10-05 14:05 | Emergency (ER) | payer MEDICAID ==
[2023-10-05] MEDS: Sodium Chloride 0.9% 10 ML Syringe FLUSH PRN (15:15)
[2023-10-05] MEDS: Ondansetron 4 MG/2 ML SDV IVPUSH ONE (15:31)
[2023-10-05] MEDS: Pantoprazole 40 MG Vial IVPUSH ONE (15:32)
[2023-10-05] MEDS: Sodium Chloride 0.9% 1,000 ML IV ONE ×2 (15:39→19:29)
[2023-10-05 15:58] LABS: HEMATOCRIT 29.4 % (37.0-47.0); HEMOGLOBIN 10.1 gm/dl (12.0-16.0); MEAN CORPUSCULAR HGB CONC 34.4 g/dl (32.0-36.0); MEAN CORPUSCULAR VOLUME 113.5 fl (83.0-99.0); MEAN PLATELET VOLUME 10.7 fl (9.4-12.3); PLATELET COUNT,PLT 81 K/mm3 (150-400); RED BLOOD CELL COUNT 2.59 M/mm3 (4.10-5.30); WHITE BLOOD CELL COUNT,WBC 7.07 K/mm3 (3.9-11.3)
[2023-10-05 16:23] LABS: A/G RATIO 0.4 (1-2); ALBUMIN 2.2 g/dl (3.4-5.0); ANION GAP 22.6 (5-15); BILIRUBIN TOTAL 9.6 mg/dL (0.2-1.0); CALCIUM 7.8 mg/dL (8.5-10.1); EST CRCL DRUG DOSING (CG) 104.21 mL/min; ETHANOL BLOOD MEDICAL 0.18 gm% (0.00)
[2023-10-05 16:24] LABS: CREATININE 0.5 mg/dL (0.55-1.02); POTASSIUM,K 3.6 mEq/L (3.5-5.1); PROTEIN TOTAL,TP 7.8 g/dl (6.4-8.2)
[2023-10-05 16:27] LABS: LACTIC ACID 3.2 mmol/L (0.4-2.0)
[2023-10-05 16:30] LABS: BAND PERCENT MAN 0 % (0-10); BASOPHILS PERCENT MAN 0 (0.1-1.2); EOSINOPHILS PERCENT MAN 0 % (0.7-5.8); LYMPHOCYTES % ATYPICAL MANUAL 0 %; LYMPHOCYTES PERCENT MAN 16 % (20-40); MONOCYTES PERCENT MAN 7 % (2-10)
[2023-10-05 16:31] LABS: ANISOCYTOSIS 2+ MODERATE
[2023-10-05 16:33] LABS: OVALOCYTES 1+ SLIGHT; PLATELET COUNT ESTIMATE DECREASED; POIKILOCYTOSIS 1+ SLIGHT
[2023-10-05 16:48] LABS: APPEARANCE,URINE CLEAR (Clear); BILIRUBIN,URINE 1+ (Negative); COLOR,URINE YELLOW (Yellow); GLUCOSE,URINE NEGATIVE (Negative); KETONES,URINE 1+ (Negative); LEUKOCYTE ESTERASE,URINE TRACE (Negative); NITRITE,URINE NEGATIVE (Negative); OCCULT BLOOD,URINE TRACE-INTACT (Negative); PROTEIN,URINE NEGATIVE (Negative); UROBILINOGEN,URINE 0.2 (0.2-1.0)
[2023-10-05 17:15] LABS: BACTERIA,URINE MODERATE /hpf (FEW); MUCUS,URINE FEW /hpf (FEW); SQUAMOUS EPITHELIAL CELLS,UR 0-5 /hpf (0-5); WBC,URINE 0-5 /hpf (0-5)
[2023-10-05] MEDS: cefTRIAXone 1 GM in Sodium Chloride 0.9% 100 ML IV ONE (18:56)
[2023-10-05 22:27] LABS: INR 1.78; PROTHROMBIN TIME 18.2 SECONDS (9.7-12.0)
[2023-10-05 22:28] LABS: PTT,PARTIAL THROMBOPLSTIN TIME 32.9 SECONDS (21.7-31.4)
== END 2023-10-06 00:45 ==
LOC: JD.ED 14:05
DX: K70.31 Alcoholic cirrhosis of liver with ascites (principal); E80.6 Other disorders of bilirubin metabolism; Z88.0 Allergy status to penicillin; Z79.899 Other long term (current) drug therapy
CPT/HCPCS: 36415; 74176; 74176-26; 76705; 76705-26; 80053; 80307; 81001; 81025; 82140; 82248; 83605; 83690; 83735; 85007; 85027; 85610; 85730; 87086; 93005; 93010; 96361; 96365; 96375; 99285; 99285-25; C9113; J0696; J2405; J3490; J7030